=== PATIENT | female | born 1950 | race Caucasian/White ===

== ENCOUNTER → 2019-03-22 | Outpatient (CLI) | payer OTHER, MEDICARE ==
[~2019-03-22] MED LIST: ATORVASTATIN CA40 MG PO; NORVASC10 MG PO; PREDNISONE 5 MG5 M1 PO; TOPROL XL50 MG
== END ==
LOC: RAD 15:03
DX: M20.5X2 Other deformities of toe(s) (acquired), left foot (principal); M19.072 Primary osteoarthritis, left ankle and foot

== ENCOUNTER → 2019-03-28 | Outpatient (CLI) | payer OTHER, MEDICARE | LOC: MRI 06:58 | DX: M86.8X7 Other osteomyelitis, ankle and foot (principal); M19.072 Primary osteoarthritis, left ankle and foot; M20.12 Hallux valgus (acquired), left foot ==

== ENCOUNTER 2019-03-29 10:35 | Inpatient (IN) | payer OTHER, MEDICARE ==
[~2019-03-29] VITALS: Ht 154.9 cm; Wt 57.5 kg
--- NOTE | ~2019-03-29 | O ---
[facility] [place] [address] OPERATIVE REPORT Name: LISSETTE JULIAN Barbara Room #: 208-P ADM IN M.R.#: [id number] Admission: 03/29/19 ������������������ Attend Phys: Clair Araiza Discharge: ������������������ Date of : 48 Report #: [id number] THIS REPORT FOR: //name// CC: Darwin Araiza DATE OF SERVICE: 03/30/2019 SURGEON: Tc Cornell DPM PREOPERATIVE DIAGNOSES: Osteomyelitis with ulceration to left hallux, distal phalanx. POSTOPERATIVE DIAGNOSES: Osteomyelitis with ulceration to left hallux, distal phalanx. PROCEDURE: 1. Ostectomy with bone debridement, left great toe, distal phalanx. 2. Incision and drainage, left toe. 3. Bone and soft tissue cultures, left great toe, distal phalanx. 4. Surgical pathology, bone and tissue from left great toe, distal phalanx . 5. Skin flap, left great toe with primary closure over a drain. ANESTHESIA: MAC. INJECTABLES: 20 mL of 0.5% Marcaine plain. ESTIMATED BLOOD LOSS: Minimal. HEMOSTASIS: Left ankle pneumatic tourniquet at 250 mmHg. SUTURES: 3-0 nylon. SPECIMENS: 1. Bone, distal phalanx, the left great toe. 2. Soft tissue, left dorsal hallux. CULTURES: 1. Bone, left distal hallux. 2. Soft tissue, left distal hallux. COMPLICATIONS: None. DESCRIPTION OF PROCEDURE: The patient was brought to the OR and placed on the table supine with induction of MAC anesthesia. A well-padded left ankle pneumatic tourniquet was placed. A local anesthetic block was given. The [address] [address] OPERATIVE REPORT Name: LISSETTE JULIAN Barbara Room #: 208-P [facility] IN .R.#: [id number] Admission: 03/29/19 ������������������ Attend Phys: Clair Araiza Discharge: ������������������ Date of : 49 Report #: [id number] was exsanguinated and it was prepped and draped and exsanguinated with inflation of the tourniquet. A #15 blade was used to create 2 semielliptical converging incisions around the ulcerative lesion to the dorsal aspect of left hallux IP joint. The lesion was removed and the incision was then extended distally in a serpentine fashion to the distal medial aspect of the hallux. There was some residual toenail from the proximal nail plate that I removed with a mosquito hemostat from full thickness dissection down to the bone, and the medial and lateral skin flaps were mobilized and retracted. There was soft tissue necrosis to the dorsal aspect of the hallux IPJ surrounding the extensor hallucis longus tendon. A printing sales representative sample of tissue was sent for aerobic and anaerobic soft tissue cultures and the underlying infected tendinous tissue was sent for surgical pathology. The base of the distal phalangeal bone appeared soft and discolored and a portion of that was debrided with a rongeur and thoroughly curettaged. The bone was sent for culture and pathology. As I extended the dissection distally, there was a large cavitation within the central aspect of the distal phalanx consistent with the bone sequestrum. The bone was soft and slightly brownish, consistent with osteomyelitis. There is also a splintered bone fragment at the medial aspect of the sequestrum. I thoroughly debrided and curettaged the sequestrum of all soft and necrotic bone. I sent a portion of the bone for second bone pathology exam. After a thorough bone curettage of all areas and soft tissue debridement, the wound was flushed with sterile saline and dried. Electrocautery was utilized for intraoperative hemostasis. The skin flaps were closed with 3-0 nylon in simple interrupted fashion. The tourniquet was deflated with normal vascular return. Sterile compressive bandage with 0.25 inch Nu-Knit gauze was placed in the wound, exiting through the incision to act as a drain. There was no open wound left after closure. Sterile compressive bandage with Xeroform, 4 x 4s and Kerlix, and Coban were applied. The patient left the OR with no complications noted. ��������������������������������������������� ���������������������������������������� By: ��������������������������������������������� 1307 [id number] Tc Cornell DPM /kelsey
--- NOTE | ~2019-03-29 | HC ---
[facility] [place] [address] CONSULTATION Name: JULIANLISSETTE Barbara Room #: 208-P [facility] IN M.R.#: [id number] Admission: 03/29/19 ������������������ Attend Phys: Clair Araiza Discharge: ������������������ Date of : 48 Report #: [id number] THIS REPORT FOR: //name// CC: Darwin Araiza DATE OF SERVICE: 03/29/2019 ADMISSION DIAGNOSIS: Wound of right hallux with chronic infection. HISTORY OF PRESENT ILLNESS: A 68-year-old female admitted for a painful swollen left great toe. She has had a wound roughly 3 months ago. She had an infected left great toenail which was partially removed without resolution of the infection. She subsequently had the remaining toenail removed and she was placed on oral antibiotics with some improvement. She had a small wound to the dorsal aspect of the left hallux over the last 3 months with significant pain. She has been on multiple oral antibiotics with minimal improvement. Her past medical history is significant for rheumatoid arthritis, hypertension, HLD. She denies fever, chills, nausea or malaise. Her vital signs are stable, and she has been afebrile. Arterial Doppler ultrasound shows multiphasic velocities to both legs, she may have a mild stenosis in the left distal SFA. Foot x-rays show osteolysis of the distal medial aspect of the left hallux, distal phalanx. MRI shows increased signal to the same region with T2 hyperintense signal consistent with acute osteomyelitis. No septic arthritis was visualized to the hallux interphalangeal joint. No signs of abscess and cyst to the soft tissue. She is on parenteral vancomycin with good tolerance. LABORATORY DATA: WBC 6.7, RBC 5.03, hemoglobin 16.1, hematocrit 46.3, platelets 113. BUN 29, creatinine 1.1, glucose 84. PHYSICAL EXAMINATION: There is a small ulceration on the dorsal aspect of the left hallux overlying the interphalangeal joint roughly 2 mm diameter. No expressible drainage or purulence. Localized inflammation to the area consistent with mild cellulitis. There is no underlying fluctuance or crepitation with joint range of motion or palpation. The left hallux nail bed is dry and clean, with intact skin and no lesions or inflammation. The nail unit has previously been removed with no signs of residual or recurrent nail. She has dystrophic toenails bilaterally, palpable dorsalis pedis and posterior tibial pulses bilaterally. No pallor, cyanosis or signs of acute vascular embarrassment. +2 nonpitting edema to both lower legs. She has intact epicritic sensation to both plantar feet. Negative Homans' or Purcell sign to either extremity. No popliteal adenopathy, no calf pain. IMPRESSION: Chronic ulceration to left dorsal hallux overlying the interphalangeal joint, possible osteomyelitis of the distal medial phalanx. [address] [address] CONSULTATION Name: LISSETTE JULIAN Barbara Room #: 208-P ADM IN M.R.#: [id number] Admission: 03/29/19 ������������������ Attend Phys: Clair Araiza Discharge: ������������������ Date of : 49 Report #: [id number] PLAN: Based on the chronicity of the ulcer and concerning radiographic findings, I recommend incision and drainage of the dorsal hallux wound with debridement of the distal phalangeal tuft with bone and soft tissue cultures and bone pathology. It is likely we order resuture of the surgical incision over a drain. I discussed the proposed procedure in detail with the patient, and she is agreeable. I do not recommend hallux amputation based on the clinical and radiographic findings at this point. We will keep her n.p.o. past midnight. ��������������������������������������������� ���������������������������������������� By: ��������������������������������������������� 1719 09 Tc Cornell DPM /kelsey
--- NOTE | ~2019-03-29 | HC ---
[facility] [place] [address] CONSULTATION Name: LISSETTE JULIAN Barbara Room #: 208-P ADM IN M.R.#: [id number] Admission: 03/29/19 ������������������ Attend Phys: Clair Araiza Discharge: ������������������ Date of : 49 Report #: [id number] THIS REPORT FOR: //name// CC: Darwin Araiza DATE OF SERVICE: 04/01/2019 CHIEF COMPLAINT: Postoperative day #2 for incision and drainage with bone debridement of left hallux for osteomyelitis. SUBJECTIVE: She is on parenteral antibiotics with good tolerance. Surgical bone and tissue cultures are pending, as well as surgical pathology. She relates moderate throbbing pain, well controlled with hydrocodone. Her appetite has somewhat decreased, denies constitutional symptoms. She has been ambulating on the foot to use the restroom. No new labs for review. PHYSICAL EXAMINATION: The incision is well approximated with no pallor, cyanosis or signs of acute vascular embarrassment. Nu Gauze drain is intact with some sanguinous drainage on the bandage, immediate digital capillary refill, low grade inflammation to the hallux with no fluctuance, crepitation or expressible drainage from the incision. IMPRESSION: Status post bone debridement, left hallux. PLAN: The Nu Gauze drain was pulled and the surgical incision cleansed with saline and gauze, redressed with Xeroform, 4 x 4, and Samir gauze. The patient may ambulate in a surgical shoe, weightbearing as tolerated. I will follow up with her this upcoming at our [facility]. Home health for dressing changes 2 times a week. ��������������������������������������������� ���������������������������������������� By: ��������������������������������������������� 1131 1504 Tc Cornell DPM /nt
--- NOTE | 2019-03-29 11:48 | NUR ---
DIRECT ADMIT TO UNIT FROM MD'S OFFICE. ORIENTED TO UNIT. DR. TOVAR PAGED FOR ADMIT ORDERS.
[2019-03-29 13:03] LABS: HEMATOCRIT 46.3 % (37.0-47.0); HEMOGLOBIN 16.1 gm/dL (12.0-15.0); MCHC 34.8 g/dL (28.0-37.0); MCV 92.1 fL (80.0-100.0); RBC 5.03 mil/uL (4.20-5.00); RDW 13.7 % (10.5-14.5); WBC 6.7 thou/uL (4.0-11.0)
[2019-03-29 13:21] LABS: ALBUMIN 3.9 g/dL (3.4-5.0); CALCIUM 9.6 mg/dL (8.5-10.1); CREATININE 1.1 mg/dL (0.6-1.0); TOTAL BILIRUBIN 0.9 mg/dL (<0.1-1.0); TOTAL PROTEIN 6.9 g/dL (6.4-8.2)
[2019-03-29 13:22] LABS: CHOLESTEROL 130 mg/dL (<200); HDL CHOLESTEROL 50 mg/dL (>40); LDL CHOLESTEROL 51 mg/dL (<100); TC:HDL 2.6 Ratio (Not establshd); TRIGLYCERIDE 149 mg/dL (<150); VLDL 30 mg/dL (<40)
[2019-03-29 13:23] LABS: POTASSIUM 2.7 mmol/L (3.5-5.1)
[2019-03-29 14:52] LABS: URIC ACID* 6.2 mg/dL (2.6-7.2)
--- NOTE | 2019-03-29 15:07 | NUR ---
K+ 2.7. MOMO SEVERINO, HERE. ORDERS RECEIVED. K+ REPLACEMENT AND VANCOMYCIN STARTED. WILL CONTINUE TO MONITOR.
[2019-03-29 19:38] VITALS: BP 151/67
--- NOTE | 2019-03-30 02:28 | NUR ---
ASSESSMENTS CHARTED. PATIENT UP AT JULY IN ROOM DURING SHIFT. HAS BEEN NPO SINCE MIDNIGHT FOR PROCEDURE IN MORNING. LEFT FOOT 1ST DIGIT IS SWOLLEN, DOCTOR TO PERFORM I & D AND GET SPECIMEN SAMPLE. PATIENTS POTASSIUM WAS CRITICALLY LOW DURING DAY PRIOR TO THIS SHIFT. 3 DOSES OF POTASSIUM WERE GIVEN DURING THE DAY. MORNING LAB TO CHECK CURRENT LEVEL. DENIES PAIN. PATIENT STEADY ON HER FEET AND NOT CURRENTLY ON PAIN MEDS.
[2019-03-30 04:59] LABS: ABSOLUTE NEUTROPHILS 2.5 thou/uL (1.4-8.2); BASOPHILS 1.1 % (0.0-2.0); EOSINOPHILS 5.7 % (0.0-3.0); HEMATOCRIT 42.1 % (37.0-47.0); HEMOGLOBIN 14.6 gm/dL (12.0-15.0); LYMPHOCYTES 38.5 % (24.0-44.0); MCHC 34.7 g/dL (28.0-37.0); MCV 92.4 fL (80.0-100.0); MONOCYTES 9.1 % (1.0-8.0); PLATELET COUNT 100 thou/uL (150-400); POLYS 45.6 % (36.0-66.0); RBC 4.56 mil/uL (4.20-5.00); RDW 13.8 % (10.5-14.5); WBC 5.4 thou/uL (4.0-11.0)
[2019-03-30 05:08] LABS: CALCIUM 8.8 mg/dL (8.5-10.1); CREATININE 0.8 mg/dL (0.6-1.0); MAGNESIUM 1.9 mg/dL (1.8-2.4)
[2019-03-30 05:18] LABS: POTASSIUM 4.3 mmol/L (3.5-5.1)
[2019-03-30 05:29] VITALS: BP 141/54
[2019-03-30 06:06] LABS: GLYCOHEMOGLOBIN (HGB A1C) 5.5 % (4.8-5.6)
[2019-03-30 07:39] VITALS: BP 134/61
[2019-03-30 11:12] VITALS: BP 154/56
--- NOTE | 2019-03-30 11:59 | NUR ---
Nutrition: Pt seen per nutrition screening for osteomyelitis of L toe (distal 1st phalanx per notes). Has been NPO since 0000 for procedure today. I&D planned w/ tissue sample. On heart healthy diet yesterday, but no meal intakes recorded. Visited w/ pt at bedside. She voices no appetite/nutrition concerns. RD shared importance of good nutrition and provided protein education. Pt likes a variety of protein - both meat, dairy, and plant sources. Understands goal of 1-2 sources q meal and understands she can make menu changes as needed to help promote proper nutrition. K+ critically low 03/29, received 3 bags to help replace, now 4.3 (WNL) before procedure. Pt remains low nutrition risk d/t adequate po CONTACT CLERK and great understanding of nutrient needs.
--- NOTE | 2019-03-30 15:24 | HC ---
[facility] [place] [address] CONSULTATION Name: JULIANLISSETTE Barbara Room #: 208-P [facility] IN M.R.#: [id number] Admission: 03/29/19 ������������������ Attend Phys: Clair Araiza Discharge: ������������������ Date of : 49 Report #: [id number] THIS REPORT FOR: //name// CC: Darwin Araiza DATE OF SERVICE: 03/29/2019 INFECTIOUS DISEASE CONSULTATION REASON FOR CONSULTATION: I was asked to evaluate concerning left great toe osteomyelitis. HISTORY OF PRESENT ILLNESS: The patient is a 68-year-old with history of hypertension; rheumatoid arthritis, on low dose prednisone several months ago; had ingrown nail to her left first toe. She had surgical intervention about 2 months ago. Subsequently, had persistent swelling, drainage, and pain. Placed on oral antibiotic therapy over the last 6 weeks. Still has significant amount of pain. X-ray showed some loss of the distal tuft. This was confirmed by MRI scan. Therefore, she was hospitalized for further treatment. The patient also smokes cigarettes. 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 Denies any fever, chills, or sweats. No cough or sputum production. No nausea, vomiting, or diarrhea. No chest pain or palpitations. She does have one functioning kidney. REVIEW OF SYSTEMS: A 10-point was otherwise negative. PAST MEDICAL HISTORY: Hypertension, rheumatoid arthritis, hyperlipidemia, one functional kidney, hysterectomy, bladder sling surgery, and cataract surgery. FAMILY HISTORY: Noncontributory. SOCIAL HISTORY: She is a smoker of cigarettes, minimal alcohol intake. ALLERGIES: LISINOPRIL. MEDICATIONS: As noted on her MAR, which were reviewed. PHYSICAL EXAMINATION: VITAL SIGNS: Afebrile and hemodynamically stable. GENERAL: Alert and cooperative. SKIN: Without rash or decubitus. No palpable adenopathy. HEENT: Eyes, without scleral icterus. Mouth without mucositis. NECK: Supple. [facility] [address] [place] [address] CONSULTATION Name: LISSETTE JULIAN Barbara Room #: 208-P [facility] IN ..#: [id number] Admission: 03/29/19 ������������������ Attend Phys: Clair Hicks Jose G Discharge: ������������������ Date of : 49 Report #: [id number] LUNGS: Clear. HEART: Regular, without murmur. ABDOMEN: Soft and nontender with no hepatosplenomegaly or mass. GENITAL: Not performed. RECTAL: Not performed. EXTREMITIES: Unremarkable other than her left great toe, nail was absent. She had significant amount of tenderness to the distal aspect of her distal phalanx. No tenderness along the DIP joint. A 1+ swelling and mild erythema. Sensation was intact. Pulses in the foot were normal. Pulses in the popliteal 2+ and 2+ in the left femoral. NEUROLOGIC: Mental status was normal with cranial nerves intact. Strength in upper and lower extremities is normal. Sensation was intact. Mood normal. LABORATORY STUDIES: Reviewed. MRI scan reviewed. IMPRESSION: 1. Left great toe distal phalanx osteomyelitis in the setting of mild immunosuppression due to rheumatoid arthritis. She has failed outpatient oral antibiotic therapy. 2. Rheumatoid arthritis, on low dose steroids. 3. Functional solitary kidney. 4. Thrombocytopenia. 5. Likely component of peripheral vascular disease although pulses were reasonable. RECOMMENDATION: 1. We will hold IV antibiotic therapy today, anticipating surgical intervention tomorrow. Obtain cultures of the bone. We will then restart antibiotics empirically. Duration of antibiotics will depend upon the level of amputation. 2. Follow creatinine closely. 3. Decreased immunosuppression as much as possible as infection is treated. ��������������������������������������������� <ELECTRONICALLY SIGNED> ���������������������������������������� By: Tc Clark MD ��������������������������������������������� 03/30/19 1524 2044 [id number] Tc Clark MD /nt
--- NOTE | 2019-03-30 15:31 | NUR ---
Chart reviewed and case discussed with the care team. Pt is a&ox4 and indep prior to admission. She had surgical debridement of her toe today and is on iv atb for osteo dx. Dc planning needs are uncertain at this time. Should the pt need home iv atb at dc will check insurance benefits with [employer]. The pt may be a good candidate for outpt infusion as well. Wound care and ID are involved. Will check benefits and dc recommendations.
--- NOTE | 2019-03-30 16:39 | NUR ---
FAXED REFERRAL TO [facility] SPOKE WITH HELGA IN INTAKE AND SHE WILL CHECK BENEFITS FOR VANCO 750MG IVPB Q12H. FAXED REFERRAL TO [facility] SPOKE WITH MICHAEL INTAKE AND HE RECEIVED AND WILL CHECK BENEFITS,. DCP TO FOLLOW.
--- NOTE | 2019-03-30 18:18 | NUR ---
VASCULAR ACCESS CONSULTED FOR PICC LINE. PIV STARTED IN RADHA PER IV TEAM LAST NIGHT WITH LONG 22, EXCELLENY BLOOD RETURN, PT'S LABS,MEDS,HX,ORDER AND CONSENT VERIFIED. DISCUSSED BENEFITS AND RISK OF OVER THE WIRE INSERTION OF PICC, VERBALIZED UNDERSTANDING. RADHA BRACHIAL WIDELY PATENT WITH USG. #4FR SL POWER PICC TRIMMED TO 43CM INSERTED PER POLICY TO 2CM EXTERNAL. STAT CXR OBTAINED.
--- NOTE | 2019-03-30 19:05 | NUR ---
CXR SHOWED LOOP IN LINE SO, PICC POWER FLUSHED,REPOSITIONED ANOTHER CXR ORDERED FOR CONFIRMATION.
--- NOTE | 2019-03-30 19:09 | NUR ---
ASSESSMENT CHARTED, VSS, ALERT AND ORIENTED X4, I&D PERFORMED ON R GREAT TOE, DRESSING ON R FOOT IS CDI, CONSENT FOR 4 PICC OBTAINED, WILL CONTINUE TO MONITOR
[2019-03-30 19:55] VITALS: BP 108/54
--- NOTE | 2019-03-30 20:30 | NUR ---
CXR CONFIRMS SVC, PT HAS BRISK BR AND FLUSH SO PICC RELEASED PER PROTOCOL TO SHILPI CANELA.
--- NOTE | 2019-03-31 01:51 | NUR ---
ASSESSMENTS CHARTED. PATIENT RESTING IN BED POST DEBRIDEMENT OF LEFT GREAT TOE. PICC LINE WAS PLACED TODAY COILED BUT TIP IS CORRECTLY PLACED. VERIFIED WITH XRAY, RELEASED FOR USE. ANTIBIOTIC TREATMENT GIVEN. PLAN OF CARE IS FOR PATIENT TO RETURN HOME ON IV ANTIBIOTIC TREATMENT. C/O PAIN IN LEFT TOE, DOSED CHARTED. PATIENT STEADY ON HER FEET. UP INDEPENDENTLY.
[2019-03-31 04:32] VITALS: BP 114/50
[2019-03-31 07:59] VITALS: BP 109/59
--- NOTE | 2019-03-31 15:00 | NUR ---
ALERT AND ORIENTED AND VITALS STABLE. MEDICATED FOR PAIN WITH PRN MEDS. UP AD JULY TO THE BATHROOM AND AROUND THE ROOM AND HAS STEADY GAIT. TOLERATING DIET W/O NAUSEA. VOIDING IN THE TOILET W/O DIFFICULTY. DRESSING ON LEFT GREAT TOE/FOOT INTACT. WILL CONTINUE TO MONITOR AND MEDICATE FOR PAIN NEEDED.
[2019-03-31 19:58] VITALS: BP 105/50
[2019-04-01 05:04] VITALS: BP 122/54
--- NOTE | 2019-04-01 05:12 | NUR ---
ASSESSMENTS CHARTED. PATIENT UP AT JULY IN ROOM. ONE COMPLAINT OF PAIN. DOSED CHARTED. ADDITIONAL ORDER RECEIVED FOR WIDER RANGE OF PAIN. PLAN OF CARE IS TO GO HOME ON ANTIBIOTIC TREATMENT. WAITING FOR REQUIREMENT DOSES AND WEIGHT BEARING STATUS FOR GOING HOME.
[2019-04-01 08:30] VITALS: BP 138/60
[2019-04-01 11:08] VITALS: BP 109/47
[2019-04-01 20:53] VITALS: BP 124/48
[2019-04-02 04:38] VITALS: BP 130/54
--- NOTE | 2019-04-02 06:22 | NUR ---
A/O X 4.UP INDEPENDENTLY TO THE BATHROOM.VOIDS.LEFT GREAT TOE DRESSING CLEAN,DRY AND INTACT.PAIN WELL CONTROLLED. IS WITH THE PATIENT.DENIES ANY NEEDS AT THIS TIME.WILL MONITOR AND CONTINUE POC.
[2019-04-02 07:25] VITALS: BP 126/55
--- NOTE | 2019-04-02 08:26 | HC ---
[facility] [place] [address] CONSULTATION Name: LISSETTE JULIAN Barbara Room #: 208-P [facility] IN M.R.#: [id number] Admission: 03/29/19 ������������������ Attend Phys: Clair Araiza Discharge: ������������������ Date of : 49 Report #: [id number] THIS REPORT FOR: //name// CC: Darwin Araiza DATE OF SERVICE: 03/29/2019 CHIEF COMPLAINT: Osteomyelitis of the right great toe. HISTORY OF PRESENT ILLNESS: This is a 68-year-old female patient with a history of hypertension and rheumatoid arthritis, who has had ongoing ulceration of her right great toe and is failing outpatient therapy. She has had the ulceration for the last 3 months. She has had her toenail removed without improvement. She has had an MRI and x-ray that demonstrates probable osteomyelitis of the distal tuft of the right great toe. She has some complaint of pain in this area. PAST MEDICAL HISTORY: Positive for hypertension, hyperlipidemia and rheumatoid arthritis. She denies any history of diabetes. She is noted to have one functioning kidney. She has had previous hysterectomy. MEDICATIONS: Include metoprolol, Norvasc, Lipitor, prednisone. SOCIAL HISTORY: Positive for smoking cigarettes, half pack per day for 40 years. No alcohol use. FAMILY HISTORY: Noncontributory. REVIEW OF SYSTEMS: CONSTITUTIONAL: The patient denies fever, chills or weight loss. NEUROLOGICAL: The patient denies focal weakness, numbness, tingling. EYES: The patient denies visual changes, redness, or drainage. ENT: The patient denies earache, nasal drainage, sore throat. CARDIOVASCULAR: The patient denies chest pain, palpitations or diaphoresis. PULMONARY: The patient denies cough or shortness of breath. GASTROINTESTINAL: The patient denies nausea, vomiting, diarrhea or abdominal pain. ORTHOPEDIC: The patient notes ulceration, drainage, redness and swelling to the right great toe. Other systems in a 14-point review of systems are negative. PHYSICAL EXAMINATION: VITAL SIGNS: At this time include temperature of 99.6, pulse 76, respiratory rate 20, blood pressure 151/67. GENERAL: This is a well-developed, well-nourished female patient who appears to [facility] [address] [place] [address] CONSULTATION Name: LISSETTE JULIAN Room #: 208-P [facility] IN .R.#: [id number] Admission: 03/29/19 ������������������ Attend Phys: Clair Araiza Discharge: ������������������ Date of : 48 Report #: [id number] be in no apparent distress. HEENT: Head normocephalic. Nose and throat clear. NECK: Supple. LUNGS: Clear. HEART: Regular rate and rhythm. ABDOMEN: Bowel sounds present. EXTREMITIES: Examination of the lower extremities demonstrate easily palpable distal pulses. She has ulceration and some redness and swelling to the right great toe. A small ulceration on the dorsal aspect of the toe is noted as well. LABORATORY STUDIES: Include white blood cell count 6.7 with hemoglobin of 16.1, hematocrit 46.3, platelet count 113,000. Sed rate is 0. Rheumatoid factor is 240.3. CLINICAL IMPRESSION: 1. Ulceration, right great toe. 2. Osteomyelitis, distal phalanx of great toe. 3. Immunosuppression for rheumatoid arthritis. 4. Hypertension. RECOMMENDATIONS: At this point in time, the patient will be started on antibiotics per Infectious Disease. We will recommend continuation of current medications. Otherwise, we will consult Podiatry; likely she would benefit from amputation of the distal phalanx of the great toe in order to effect a cure. The patient is agreeable with current plan of care. I do appreciate being asked to see her in consultation. ��������������������������������������������� <ELECTRONICALLY SIGNED> ���������������������������������������� By: Marvel Kearns MD ��������������������������������������������� 04/02/19 0826 1043 [id number] Marvel Kearns MD /nt
--- NOTE | 2019-04-02 09:37 | NUR ---
ASSESSMENT CHARTED, VSS, ALERT AND ORIENTED X 4, MEDICATIONS ADMINISTERED, NO NEEDS VOICED, WILL CONTINUE TO MONITOR
--- NOTE | 2019-04-02 14:33 | NUR ---
SPOKE WITH PATIENT REGARDING OUT OF POCKET COST FOR OUTPATIEN INFUSION. PATIENTS OUTPATIENT COST IS $182 SP WITH COST OF DRUG AND DAILY SUPPLY COST. PATIENT PREFERS OUTPATIENT INFUSION. SHE PREFERS OUTPATIENT INFUSION HERE AT [facility]. SP WITH FRANSICO IN OUTPATIENT INFUSION TO ALERT OF POSSIBLE DC.
--- NOTE | 2019-04-02 15:43 | NUR ---
WOUND CARE FOLLOW UP; ROUNDING WITH DR NAGEL AND KATRIN [employer]INE PLANT OPERATOR. THE RIGHT TOE WOUND IS STABLE AT THIS TIME, NO S/S OF INFECTION. RECOMMENDATIONS; CONTINUE CURRENT TREATMENT. DISCUSSED WITH STAFF
[2019-04-02 16:24] VITALS: BP 126/55
[2019-04-02] MEDS ORDERED: HYDROCODON-ACE1 EAC7 PO (16:44)
[2019-04-02] MEDS ORDERED: ROCEPHIN 11 GM/1001 IV (16:44)
--- NOTE | 2019-04-02 17:03 | NUR ---
spoke with Dr Amber crane ak home with outpatient infusion. orders in chart. Notified Susy in outpatient infusion clinic who requests 1pm apt in am. Sp with patient who is in agreement with plan.
[2019-04-02 17:14] VITALS: BP 126/55
[2019-04-02 17:24] VITALS: BP 126/55
--- NOTE | 2019-04-02 17:50 | NUR ---
PATIENT DISCHARGED TO HOME WITH ORDERS FOR OUTPATIENT IV THERAPY, PRESCRIPTIONS AND DISCHARGE INSTRUCTIONS GIVEN, STATED UNDERSTANDING. PATIENT TAKEN OUT IN WHEELCHAIR.
[2019-04-03] MEDS ORDERED: ACTEMRA80 MG/4 ML IV (13:31)
--- NOTE | 2019-04-04 12:06 | PATH ---
[facility] [place] [address] PATHOLOGY RPT PROCEDURE Name: LISSETTE JULIAN Barbara Room #: 208-P DIS IN M.R.#: [id number] ������������������ Admission: 03/29/19 ������������������ Date of : 48 Discharge: 04/02/19 Report #: [id number] Path Case #: [id number] L[facility] Accession Number: [id number] . 01 Material submitted: . PART A: toe - LEFT GREAT TOE-SOFT TISSUE. Modifiers: left, great PART B: toe - LEFT GREAT TOE-BONE #1. Modifiers: left, great, 1 PART C: toe - LEFT GREAT TOE-BONE #2. Modifiers: left, great, 2 . 01 Clinical history: . Left great toe. . 02 Diagnosis: A. Left great toe soft tissue, debridement: - Marked acute inflammation along with fibrinoid degeneration, consistent with debridement tissue. . B. Left great toe bone #1, debridement: - Fragment of bone with acute and chronic osteomyelitis, compatible with debridement tissue. . C. Left great toe bone #2, debridement: - Fragment of bone with acute and chronic osteomyelitis, compatible with debridement tissue. - Additional fragment of bone showing regenerative changes. (IUV:maliha; 04/02/2019) MBR/04/03/2019 . 02 Electronically signed: . Lara Yates MD, Pathologist NPI- [id number] . 01 Gross description: . A. Received in formalin labeled "Lissette Julian, left great toe soft tissue" is a fragment of nunn-yellow soft tissue measuring 1.3 x 0.9 x 0.3 cm. The specimen is trisected and submitted in cassette A1. . B. Received in formalin labeled "Lissette Julian, left great toe bone #1" are two fragments of nunn-white irregular bone measuring 1.3 x 0.4 x 0.3 cm in aggregate. The specimen is submitted entirely in cassette B1 following decalcification. . C. Received in formalin labeled "Lissette Julian, left great toe bone #2" are two fragments of nunn-white bone measuring in aggregate 1.0 x 0.6 x 0.2 cm. The specimen is submitted entirely in cassette C1 following decalcification. ([facility]; 04/01/2019) [facility]/[address] [address] PATHOLOGY RPT PROCEDURE Name: LISSETTE JULIAN Barbara Room #: 208-P DIS IN M.R.#: [id number] ������������������ Admission: 03/29/19 ������������������ Date of : 48 Discharge: 04/02/19 Report #: [id number] Path Case #: [id number] . 02 Pathologist provided ICD-10: M86.172, M86.672 . 02 CPT . 328315, 356760, 058784, 665369, 155566 Specimen Comment: A courtesy copy of this report has been sent to Specimen Comment: [phone], , . Specimen Comment: Report sent to ,DR TOVAR / DR RAMIREZ Specimen Comment: A duplicate report has been generated due to demographic updates. Performed at: [address], [place] [id number] MD German Boo MD Phone: [phone] Performed at: [address] [id number] MD Lara Yates MD Phone: [phone]
== END 2019-04-02 17:49 | disposition home or self-care (01) | DRG 515 ==
LOC: 2N 10:35 → ENTRNSPT 04-02 17:33 → 2N 04-02 17:49
PROVIDERS: Nurse Practitioner; ADMIT Hospitalist
PROC: 02HV33Z Insertion of Infusion Device into Superior Vena Cava, Percutaneous Approach (ICD-10-PCS; principal; 2019-03-30)
PROC: 0QBR0ZZ Excision of Left Toe Phalanx, Open Approach (ICD-10-PCS; principal; 2019-03-30)
DX: M86.8X7 Other osteomyelitis, ankle and foot (principal); N17.0 Acute kidney failure with tubular necrosis; M06.9 Rheumatoid arthritis, unspecified; E78.5 Hyperlipidemia, unspecified; F17.210 Nicotine dependence, cigarettes, uncomplicated; D69.6 Thrombocytopenia, unspecified; L97.519 Non-pressure chronic ulcer of other part of right foot with unspecified severity; L97.529 Non-pressure chronic ulcer of other part of left foot with unspecified severity; I12.9 Hypertensive chronic kidney disease with stage 1 through stage 4 chronic kidney disease, or unspecified chronic kidney disease; N18.9 Chronic kidney disease, unspecified; I70.209 Unspecified atherosclerosis of native arteries of extremities, unspecified extremity; E87.6 Hypokalemia; Z88.8 Allergy status to other drugs, medicaments and biological substances; Z90.710 Acquired absence of both cervix and uterus; Z98.49 Cataract extraction status, unspecified eye; Z79.899 Other long term (current) drug therapy; Z71.6 Tobacco abuse counseling
CPT/HCPCS: 10797; 27000; 50010; 50101; 50386; 56527; 57091; 62110; 62900; 70005

== ENCOUNTER → 2019-04-03 | Outpatient (CLI) | payer OTHER, MEDICARE ==
[~2019-04-03] MED LIST changes: +ACTEMRA80 MG/4 ML IV; +HYDROCODON-ACE1 EAC7 PO; +ROCEPHIN 11 GM/1001 IV
--- NOTE | 2019-04-03 13:24 | NUR ---
IN FOR [facility] INFUSION FOR LEFT 1ST TOE INFECTION/NONHEALING ULCER/S/P I&D LEFT 1ST TOE. PATIENT WAS DISCHARGED FROM THE HOSPITAL YESTERDAY AND TOLERATING [facility] WELL. PICC TO RADHA INTACT/DRESSING INTACT. SMALL AMOUNT OF BRUISING NOTED. RECEIVED GOOD BLOOD RETURN AND FLUSHED EASILY. TOLERATED INFUSION WITHOUT INCIDENT. DRESSING TO LEFT FOOT C/D/I. DISCUSSED SIDE EFFECTS OF MEDICATION. ENCOURAGED PATIENT TO TAKE A PROBIOTIC TO HELP PREVENT C-DIFF. DENIED DIARRHEA, PAIN, FEVER/CHILLS, NAUSEA/VOMITING. DISCUSSED PLAN OF CARE. PATIENT STATED UNDERSTANDING. DISMISSED IN GOOD CONDITION.
== END ==
LOC: OPONC 06:20
DX: S91.102A Unspecified open wound of left great toe without damage to nail, initial encounter (principal); M86.8X7 Other osteomyelitis, ankle and foot; I10 Essential (primary) hypertension; E78.5 Hyperlipidemia, unspecified; M19.90 Unspecified osteoarthritis, unspecified site; F17.210 Nicotine dependence, cigarettes, uncomplicated; X58.XXXA Exposure to other specified factors, initial encounter; Y93.89 Activity, other specified; Y92.89 Other specified places as the place of occurrence of the external cause
CPT/HCPCS: 95000

== ENCOUNTER → 2019-04-04 | Outpatient (CLI) | payer OTHER, MEDICARE ==
[~2019-04-04] MED LIST changes: +NEURONTIN 300300 M1 PO
[2019-04-04 11:07] VITALS: BP 126/57
--- NOTE | 2019-04-04 11:30 | NUR ---
IN FOR CEFTRIAXONE INFUSION FOR LEFT 1ST TOE INFECTION. PATIENT DENIED N/V, F/C, DIARRHEA. TOLERATED INFUSION WITHOUT INCIDENT. DRESSING TO LET 1ST TOE C/D/I. DISMISSED IN GOOD CONDITION.
== END ==
LOC: OPONC 01:22
DX: M86.8X7 Other osteomyelitis, ankle and foot (principal)
CPT/HCPCS: 95000

== ENCOUNTER → 2019-04-05 | Outpatient (CLI) | payer OTHER, MEDICARE ==
[2019-04-05 08:51] VITALS: BP 94/53
--- NOTE | 2019-04-05 09:43 | NUR ---
IN FOR DAILY CEFTRIAXONE INFUSION FOR LT 1ST TOE INFECTION. STATED FEELING WELL. DENIED N/V, F/C, DIARRHEA. TOLERATED INFUSION WITHOUT INCIDENT. RECEIVED GOOD BLOOD RETURN FROM PICC LINE AND FLUSHED EASILY. PICC DRESSING CHANGED. SITE WNL. SMALL AMOUNT OF BRUISING NOTED. PATIENT VERY PLEASANT AND COOPERATIVE. TO RETURN TOMORROW FOR NEXT INFUSION. HAD A SOCK OVER TOE SO NOT SEEN. DENIED PAIN. DISMISSED IN GOOD CONDITION.
== END ==
LOC: OPONC 00:48
DX: M86.8X7 Other osteomyelitis, ankle and foot (principal)
CPT/HCPCS: 95000; 95001

== ENCOUNTER → 2019-04-06 | Outpatient (CLI) | payer OTHER, MEDICARE ==
[2019-04-06 09:59] VITALS: BP 121/57
--- NOTE | 2019-04-06 10:09 | NUR ---
IN FOR DAILY CEFTRIAXONE INFUSION FOR LT 1ST TOE OSTEOMYELITIS. DENIED PAIN, N/V, F/C, DIARRHEA. TOLERATED INFUSION WITHOUT INCIDENT. WEEKEND INSTRUCTIONS GIVEN. GOOD BLOOD RETURN FROM PICC LINE. SITE WNL. DISMISSED IN GOOD CONDITION.
== END ==
LOC: OPONC 00:18
DX: M86.8X7 Other osteomyelitis, ankle and foot (principal)
CPT/HCPCS: 95000

== ENCOUNTER → 2019-04-07 | Outpatient (CLI) | payer OTHER, MEDICARE | LOC: OPONC 06:58 | DX: M86.8X7 Other osteomyelitis, ankle and foot (principal) | CPT/HCPCS: 95000 ==

== ENCOUNTER → 2019-04-08 | Outpatient (CLI) | payer OTHER, MEDICARE | LOC: OPONC 07:00 | DX: M86.8X7 Other osteomyelitis, ankle and foot (principal) | CPT/HCPCS: 95000 ==

== ENCOUNTER → 2019-04-09 | Outpatient (CLI) | payer OTHER, MEDICARE ==
[2019-04-09 10:50] VITALS: BP 116/60
[2019-04-09 11:18] LABS: HEMATOCRIT 43.6 % (37.0-47.0); HEMOGLOBIN 15.1 gm/dL (12.0-15.0); MCH 32.2 pg (26.0-34.0); MCHC 34.6 g/dL (28.0-37.0); RBC 4.69 mil/uL (4.20-5.00); RDW 13.9 % (10.5-14.5); WBC 6.8 thou/uL (4.0-11.0)
[2019-04-09 11:32] LABS: ALBUMIN 3.8 g/dL (3.4-5.0); CALCIUM 8.9 mg/dL (8.5-10.1); CREATININE 0.9 mg/dL (0.6-1.0); POTASSIUM 3.4 mmol/L (3.5-5.1); TOTAL BILIRUBIN 0.9 mg/dL (<0.1-1.0); TOTAL PROTEIN 6.5 g/dL (6.4-8.2)
--- NOTE | 2019-04-09 12:40 | NUR ---
HERE FOR DAILY IV ROCEPHIN. STATES INFUSION OVER THE WEEKEND WENT WELL IN THE ED. PICC LINE PATENT, DRESSING INTACT, GOOD BLOOD RETURN. TOLERATED INFUSION WITHOUT INCIDENT. DENIES N/V/DIARRHEA, FEVER/CHILLS/SWEATS AT HOME. TOE LOOKS CLEAN, INCISIONS AND SUTURES INTACT. PT DOING OWN DRESSING CHANGES. HAS SOME PAIN WHICH SHE STATES IS MANAGEABLE WITH IBUPROFEN. ADDRESSED LOW POTASSIUM WITH PT AND MENTIONED FOODS HIGH IN POTASSIUM AND ENCOURAGED PT TO EAT MORE OF THESE (TOMATOES, POTATOES, BANANAS, DRK GREEN LEAFY VEGGIES). DISMISSED IN STABLE CONDITION. SCHEDULED TO RETURN AGAIN IN THE MORNING.
== END ==
LOC: OPONC 01:02
PROVIDERS: Specialist
DX: M86.8X7 Other osteomyelitis, ankle and foot (principal); I10 Essential (primary) hypertension; D69.6 Thrombocytopenia, unspecified; M06.9 Rheumatoid arthritis, unspecified
CPT/HCPCS: 95000

== ENCOUNTER → 2019-04-10 | Outpatient (CLI) | payer OTHER, MEDICARE ==
[2019-04-10 08:24] VITALS: BP 126/63
--- NOTE | 2019-04-10 12:23 | NUR ---
IN FOR DAILY CEFTRIAXONE INFUSION FOR LT 1ST TOE OSTEOMYELITIS. DENIED PAIN, N/V, FEVER/CHILLS, DIARRHEA. TOLERATED INFUSION WITHOUT INCIDENT. RECEIVED GOOD BLOOD RETURN FROM PICC LINE AND FLUSHED EASILY. SITE WNL. WILL CONTINUE DAILY INFUSIONS THROUGH NEXT TUESDAY WHEN DR. ECHEVARRIA WILL RE-EVALUATE. DISMISSED IN STABLE CONDITION.
== END ==
LOC: OPONC 01:45
DX: M86.8X7 Other osteomyelitis, ankle and foot (principal)
CPT/HCPCS: 95000

== ENCOUNTER → 2019-04-11 | Outpatient (CLI) | payer OTHER, MEDICARE ==
[~2019-04-11] MED LIST changes: -NEURONTIN 300300 M1 PO
[2019-04-11 08:55] VITALS: BP 121/70
--- NOTE | 2019-04-11 09:22 | NUR ---
HREE FOR DAILY IV ROCEPHIN. REPORTS DOING WELL, FEELING WELL. DENIES N/V/DIARRHEA, FEVER/CHILLS/SWEATS. CHANGING TOE DRESSING HERSELF DAILY. GOING TO WOUND CARE CLINIC FOR VISIT DIRECTLY FOLLOWING INFUSION TODAY. TOLERATED INFUSION WITHOUT INCIDENT. DISMISSED IN STABLE CONDITION. WILL RETURN HERE AGAIN IN THE MORNING.
== END ==
LOC: HYPER 00:37
DX: T81.89XA Other complications of procedures, not elsewhere classified, initial encounter (principal); M86.372 Chronic multifocal osteomyelitis, left ankle and foot; L03.032 Cellulitis of left toe; I10 Essential (primary) hypertension; E78.5 Hyperlipidemia, unspecified; M06.9 Rheumatoid arthritis, unspecified; F17.290 Nicotine dependence, other tobacco product, uncomplicated; Y92.89 Other specified places as the place of occurrence of the external cause; Y83.8 Other surgical procedures as the cause of abnormal reaction of the patient, or of later complication, without mention of misadventure at the time of the procedure
CPT/HCPCS: 95000

== ENCOUNTER → 2019-04-12 | Outpatient (CLI) | payer OTHER, MEDICARE ==
[~2019-04-12] MED LIST changes: +NEURONTIN 300300 M1 PO
[2019-04-12 09:12] VITALS: BP 127/64
--- NOTE | 2019-04-12 09:15 | NUR ---
IN FOR DAILY CEFTRIAXONE INFUSION FOR LT 1ST TOE OSTEOMYELITIS. STATED FEELING WELL. DENIED N/V, FEVER/CHILLS, DIARRHEA, PAIN. TOLERATED INFUSION WITHOUT INCIDENT. CHANGED PICC DRESSING. SITE WNL. RECEIVED GOOD BLOOD RETURN AND FLUSHED EASILY. TO RETURN TOMORROW FOR NEXT INFUSION. DISMISSED IN GOOD CONDITION.
== END ==
LOC: OPONC 01:54
DX: M86.8X7 Other osteomyelitis, ankle and foot (principal)
CPT/HCPCS: 95000

== ENCOUNTER → 2019-04-13 | Outpatient (CLI) | payer OTHER, MEDICARE ==
[2019-04-13 08:34] VITALS: BP 136/70
--- NOTE | 2019-04-13 08:37 | NUR ---
IN FOR DAILY CEFTRIAXONE INFUSION FOR LT 1ST TOE OSTEOMYELITIS. STATED FEELING WELL WITH NO COMPLAINTS OF N/V, FEVER/CHILLS, DIARRHEA. STATED HAS ONE SPOT ON HER TOE THAT STILL THROBS AT TIMES. DRESSING TO TOE C/D/I. TOLERATED INFUSION WITHOUT INCIDENT. SALINE LOCKED PICC LINE. DISMISSED IN GOOD CONDITION.
== END ==
LOC: OPONC 01:46
DX: M86.8X7 Other osteomyelitis, ankle and foot (principal)
CPT/HCPCS: 95000

== ENCOUNTER → 2019-04-14 | Outpatient (CLI) | payer OTHER, MEDICARE | LOC: OPONC 07:04 | DX: M86.8X7 Other osteomyelitis, ankle and foot (principal) | CPT/HCPCS: 95000 ==

== ENCOUNTER → 2019-04-16 | Outpatient (CLI) | payer OTHER, MEDICARE ==
[2019-04-16 11:30] VITALS: BP 134/62
[2019-04-16 12:08] LABS: ABSOLUTE NEUTROPHILS 3.2 thou/uL (1.4-8.2); BASOPHILS 0.8 % (0.0-2.0); EOSINOPHILS 4.7 % (0.0-3.0); HEMATOCRIT 42.6 % (37.0-47.0); HEMOGLOBIN 14.9 gm/dL (12.0-15.0); LYMPHOCYTES 25.4 % (24.0-44.0); MCHC 35.1 g/dL (28.0-37.0); MONOCYTES 8.2 % (1.0-8.0); PLATELET COUNT 106 thou/uL (150-400); POLYS 60.9 % (36.0-66.0); RBC 4.53 mil/uL (4.20-5.00); RDW 14.3 % (10.5-14.5); WBC 5.3 thou/uL (4.0-11.0)
[2019-04-16 12:25] LABS: ALBUMIN 3.8 g/dL (3.4-5.0); CALCIUM 9.2 mg/dL (8.5-10.1); CREATININE 1.1 mg/dL (0.6-1.0); POTASSIUM 3.2 mmol/L (3.5-5.1); TOTAL BILIRUBIN 0.9 mg/dL (<0.1-1.0); TOTAL PROTEIN 6.4 g/dL (6.4-8.2)
--- NOTE | 2019-04-16 12:30 | NUR ---
IN FOR DAILY IV ANTIBIOTIC. STATES WEEKEND INFUSIONS WENT WELL. REPORTS DOING WELL EXCEPT FOR PERSISTENT INTERMITTENT SHOOTING PAINS L 1ST TOE. THIS HAS NOT GOTTEN WORSE, JUST NO BETTER. PT DENIES N/V/DIARRHEA, FEVER/CHILLS/SWEATS. TOE SUTURES AND INCISIONS INTACT, JUST SLIGHT REDNESS, NO NOTED EDEMA. STATES SHE SEES THE SURGEON ON AND HOPES TO HAVE SUTURES REMOVED. SAW DR. ECHEVARRIA. SCRIPT FOR NEURONTIN GIVEN TO PT WITH INSTRUCTIONS ON HOW TO TAKE AND TO WATCH FOR POTENTIAL DROWSINESS SIDE EFFECT. LABS DRAWN, CHEMISTRIES NOT YET RESULTED. PT DISMISSED IN STABLE CONDITION. SCHEDULED TO RETURN IN THE MORNING.
--- NOTE | 2019-04-16 16:19 | NUR ---
REVIEWED LABS FROM TODAY. POTASSIUM TRENDING DOWN. FAXED LABS TO BOTH DR. ECHEVARRIA AND PT'S PCP, DR. RAMIREZ AND SPOKE WITH BOTH NURSES WELL PT TO INFORM THEM OF LOW K. TOLD PT TO EXPECT A F/U CALL TOMORROW FROM EITHER OF THEM TO ADVISE HER ON K MANAGEMENT. PT STATES SHE USED TO TAKE KLORCON BUT HAS BEEN OFF FOR A WHILE.
--- NOTE | 2019-04-23 14:04 | HC ---
[facility] [place] [address] [address] CONSULTATION Name: LISSETTE JULIAN Barbara Room #: REG [facility].#: [id number] Admission: 04/16/19 Attend Phys: Tc Clark MD Discharge: Date of : 48 Report #: [id number] THIS REPORT FOR: //name// CC: Tc Park INFECTIOUS DISEASE FOLLOWUP VISIT REASON FOR FOLLOWUP: Right first toe osteomyelitis. Postoperative day #18. Ceftriaxone. No fever, chills or sweats. Continues to have shooting pains into her left great toe. No drainage. No issues with her upper extremity PICC on the right. Afebrile and hemodynamically stable. Left first toe incision was well approximated. There was no drainage. There was minimal swelling. There was no erythema. Right upper extremity PICC site without drainage or erythema. LABORATORY STUDIES: Pending. Microbiology reports showed no growth, aerobic and anaerobic bacteria. IMPRESSION: 1. Left distal first phalanx osteomyelitis with no organisms identified. 2. Immunosuppression for rheumatoid arthritis. 3. Solitary functioning kidney. 4. Hypertension. 5. Chronic thrombocytopenia. RECOMMENDATION: We will continue ceftriaxone anticipating 4 weeks and then follow up x-ray. We will try gabapentin and see if that helps her neuropathy type of pain here. We will start at 300 mg t.i.d. FOLLOWUP: One week with laboratory studies including CBC, CMP, sedimentation rate. The patient will follow up with Dr. Cornell from Podiatry later this week. <ELECTRONICALLY SIGNED> By: Tc Clark MD 04/23/19 1404 1210 2206 Tc Clark MD /nt
== END ==
LOC: OPONC 08:48
PROVIDERS: Specialist
DX: M86.8X7 Other osteomyelitis, ankle and foot (principal); I10 Essential (primary) hypertension; M06.9 Rheumatoid arthritis, unspecified; D69.6 Thrombocytopenia, unspecified
CPT/HCPCS: 95000

== ENCOUNTER → 2019-04-17 | Outpatient (CLI) | payer OTHER, MEDICARE ==
[2019-04-17 08:57] VITALS: BP 127/73
--- NOTE | 2019-04-17 09:08 | NUR ---
IN FOR DAILY CEFTRIAXONE INFUSION FOR LT 1ST TOE OSTEOMYELITIS. STATED FEELING WELL. DRESSING TO LT 1ST TOE C/D/I. DENIED PAIN, N/V, FEVER/CHILLS, DIARRHEA. TOLERATED INFUSON WITHOUT INCIDENT. SALINE LOCKED PICC LINE. DISMISSED IN GOOD CONDITION.
== END ==
LOC: OPONC 00:17
DX: M86.8X7 Other osteomyelitis, ankle and foot (principal)
CPT/HCPCS: 95000

== ENCOUNTER → 2019-04-18 | Outpatient (CLI) | payer OTHER, MEDICARE ==
[2019-04-18 08:03] VITALS: BP 116/62
--- NOTE | 2019-04-18 08:32 | NUR ---
HERE FOR DAILY IV CEFTRIAXONE. REPORTS DOING WELL, NO CONCERNS. SEES THE SURGEON TOMORROW AND HOPES TO HAVE SUTURES REMOVED FROM TOE. SEES DR. RAMIREZ ON TUESDAY FOR GENERAL CHECK AND TO ALSO EVALUATE FOR POTASSIUM REPLACEMENT. TOLERATED INFUSION WITHOUT INCIDENT. DISMISSED IN STABLE CONDITION. WILL RETURN AGAIN TOMORROW.
== END ==
LOC: OPONC 00:39
DX: M86.8X7 Other osteomyelitis, ankle and foot (principal)
CPT/HCPCS: 95000

== ENCOUNTER → 2019-04-19 | Outpatient (CLI) | payer OTHER, MEDICARE ==
[2019-04-19 11:02] VITALS: BP 116/61
--- NOTE | 2019-04-19 11:09 | NUR ---
IN FOR DAILY CEFTRIAXONE INFUSION FOR LT 1ST TOE OSTEOMYELITIS. STATED FEELING WELL. DENIED PAIN, N/V, FEVER/CHILLS, DIARRHEA. TOLERATED INFUSION WITHOUT INCIDENT. RECEIVED GOOD BLOOD RETURN FROM PICC LINE AND FLUSHED EASILY. TO RETURN TOMORROW FOR NEXT INFUSION. DISMISSED IN GOOD CONDITION.
== END ==
LOC: OPONC 00:37
DX: M86.8X7 Other osteomyelitis, ankle and foot (principal)
CPT/HCPCS: 95000

== ENCOUNTER → 2019-04-20 | Outpatient (CLI) | payer OTHER, MEDICARE ==
[2019-04-20 08:10] VITALS: BP 131/62
--- NOTE | 2019-04-20 08:28 | NUR ---
IN FOR DAILY CEFTRIAXONE INFUSION. STATED FEELING WELL WITH NO COMPLAINTS OF N/V, FEVER/CHILLS, DIARRHEA. TOLERATED INFUSION WITHOUT INCIDENT. PATIENT STATED HER SURGEON TOOK OUT THE SUTURES IN HER TOE YESTERDAY AND SHE HAD SEVERE PAIN THROUGHOUT THE NIGHT, HOWEVER PAIN HAS SUBSIDED THIS AM. TO GO TO ED OVER THE WEEKEND FOR INFUSIONS. DISMISSED IN GOOD CONDITION.
== END ==
LOC: OPONC 08:20
DX: M86.8X7 Other osteomyelitis, ankle and foot (principal)
CPT/HCPCS: 95000

== ENCOUNTER → 2019-04-21 | Outpatient (CLI) | payer OTHER, MEDICARE | LOC: OPONC 09:14 | DX: M86.8X7 Other osteomyelitis, ankle and foot (principal) | CPT/HCPCS: 95000 ==

== ENCOUNTER → 2019-04-22 | Outpatient (CLI) | payer OTHER, MEDICARE | LOC: OPONC 14:50 | DX: M86.8X7 Other osteomyelitis, ankle and foot (principal) | CPT/HCPCS: 95000 ==

== ENCOUNTER → 2019-04-23 | Outpatient (CLI) | payer OTHER, MEDICARE ==
--- NOTE | ~2019-04-23 | HC ---
[facility] [place] [address] CONSULTATION Name: LISSETTE JULIAN Barbara Room #: REG [facility]#: [id number] Admission: 04/23/19 Attend Phys: Tc Clark MD Discharge: Date of : 48 Report #: [id number] THIS REPORT FOR: //name// CC: Tc Park DATE OF SERVICE: 04/23/2019 OUTPATIENT FOLLOWUP ID VISIT HISTORY OF PRESENT ILLNESS: The patient is postoperative day #25 following debridement, left first toe osteomyelitis. Ceftriaxone. No fever, chills or sweats. Right upper extremity PICC is functioning well. She still has occasional shooting pains into the left great toe. Sutures have been removed, except for one she states is remaining. Minimal drainage from her toe. Still has a wound over the dorsum. She tried gabapentin, with no improvement. Tylenol seems to help as much as anything. PHYSICAL EXAMINATION: Afebrile and hemodynamically stable. Left first toe incisional wound with relatively clean base. No surrounding erythema. No purulent drainage. No bone was exposed. One distal suture was remaining. Right upper extremity PICC was without erythema or drainage. LABORATORY STUDIES: CBC and chemistry unremarkable. ESR is pending. IMPRESSION: Left distal first toe phalanx osteomyelitis. Cultures were negative. Remains on immunosuppression for rheumatoid arthritis. She has a solitary functional kidney. Underlying hypertension. She has chronic thrombocytopenia. RECOMMENDATION: We will continue current antibiotic program. Reevaluate in 1 week. Remove distal suture. Continue with localized wound care. By: 1403 2329 Tc Clark MD /nt
[2019-04-23 11:19] LABS: ABSOLUTE NEUTROPHILS 5.1 thou/uL (1.4-8.2); BASOPHILS 0.6 % (0.0-2.0); EOSINOPHILS 2.8 % (0.0-3.0); HEMATOCRIT 43.4 % (37.0-47.0); HEMOGLOBIN 14.9 gm/dL (12.0-15.0); LYMPHOCYTES 13.2 % (24.0-44.0); MCH 32.2 pg (26.0-34.0); MCHC 34.4 g/dL (28.0-37.0); MCV 93.6 fL (80.0-100.0); MONOCYTES 6.7 % (1.0-8.0); PLATELET COUNT 123 thou/uL (150-400); POLYS 76.7 % (36.0-66.0); RBC 4.63 mil/uL (4.20-5.00); RDW 14.3 % (10.5-14.5); WBC 6.7 thou/uL (4.0-11.0)
[2019-04-23 11:34] LABS: ALBUMIN 3.8 g/dL (3.4-5.0); CALCIUM 9.6 mg/dL (8.5-10.1); CREATININE 0.9 mg/dL (0.6-1.0); POTASSIUM 3.6 mmol/L (3.5-5.1); TOTAL BILIRUBIN 0.7 mg/dL (<0.1-1.0); TOTAL PROTEIN 6.5 g/dL (6.4-8.2)
[2019-04-23 11:52] VITALS: BP 135/75
--- NOTE | 2019-04-23 14:17 | NUR ---
IN FOR DAILY CEFTRIAXONE INFUSION. STATED FEELING WELL WITH NO COMPLAINTS OF N/V, FEVER/CHILLS AND DIARRHEA. TOLERATED INFUSION WITHOUT INCIDENT. LABS DRAWN FROM PICC LINE WITHOUT DIFFICULTY. DR. ECHEVARRIA VISITED. TO CONTINUE THE SAME FOR ANOTHER WEEK. APPLIED AQUACEL AG TO LT 1ST TOE WOUND AND COVERED WITH BANDAID. INSTRUCTED PATIENT TO APPLY AQUACELL AG DAILY TO WOUND AND GAVE HER SOME OF THIS DRESSING. STATED UNDERSTANDING. DISMISSED IN GOOD CONDITION.
== END ==
LOC: OPONC 09:54
PROVIDERS: Specialist
DX: M86.8X7 Other osteomyelitis, ankle and foot (principal)
CPT/HCPCS: 95000

== ENCOUNTER → 2019-04-24 | Outpatient (CLI) | payer OTHER, MEDICARE ==
[2019-04-24 08:10] VITALS: BP 111/55
--- NOTE | 2019-04-24 09:51 | NUR ---
IN FOR DAILY CEFTRIAXONE INFUSION FOR LT 1ST TOE OSTEOMYELITIS. STATED FEELING WELL WITH NO COMPLAINTS. TOLERATED INFUSION WITHOUT INCIDENT. RECEIVED GOOD BLOOD RETURN FROM PICC LINE AND FLUSHED EASILY. TO RETURN TOMORROW FOR THE SAME. DISMISSED IN GOOD CONDITION.
== END ==
LOC: OPONC 00:52
DX: M86.8X7 Other osteomyelitis, ankle and foot (principal)
CPT/HCPCS: 95000

== ENCOUNTER → 2019-04-25 | Outpatient (CLI) | payer OTHER, MEDICARE ==
[2019-04-25 08:23] VITALS: BP 99/60
--- NOTE | 2019-04-25 09:00 | NUR ---
HERE FOR DAILY IV CEFTRIAXONE. REPORTS DOING WELL, FEELING WELL. DENIES N/V/DIARRHEA, FEVER/CHILLS/SWEATS. REPORTS EATING WELL. DID SEE HER PCP LAST WEEK WHO IS HELPING WATCH OVER HER POTASSIUM WHICH WAS IN NORMAL LIMITS THIS WEEK. REPORTS SOME THROBBING IN TOE BUT NOT BAD. STOPPED TAKING THE NEUROTIN STATING IT DIDN'T SEEM TO HELP AT ALL. STARTED BACK TO WORK A FEW HOURS ON THE WEEKEND WITHOUT ANY NOTED INCREASE IN DISCOMFORT IN TOE. PICC LINE DRESSING CHANGED TODAY. SITE LOOKS GOOD. TOLERATED INFUSION WITHOUT INCIDENT. DISMISSED IN STABLE CONDITION. WILL RETURN AGAIN IN THE MORNING.
== END ==
LOC: OPONC 00:33
DX: M86.8X7 Other osteomyelitis, ankle and foot (principal)
CPT/HCPCS: 95000

== ENCOUNTER → 2019-04-26 | Outpatient (CLI) | payer OTHER, MEDICARE ==
[2019-04-26 08:48] VITALS: BP 102/53
--- NOTE | 2019-04-26 08:55 | NUR ---
IN FOR DAILY CEFTRIAXONE INFUSION FOR LT 1ST TOE OSTEOMYELITIS. UNABLE TO SEE WOUND IT IS DRESSED. PATIENT DENIED PAIN, N/V, FEVER/CHILLS. TOLERATED INFUSION WITHOUT INCIDENT. DISMISSED IN GOOD CONDITION.
== END ==
LOC: OPONC 01:06
DX: M86.8X7 Other osteomyelitis, ankle and foot (principal)
CPT/HCPCS: 95000

== ENCOUNTER → 2019-04-27 | Outpatient (CLI) | payer OTHER, MEDICARE ==
[2019-04-27 08:13] VITALS: BP 137/77
--- NOTE | 2019-04-27 08:32 | NUR ---
HERE FOR DAILY IV CEFTRIAXONE. REPORTS DOING WELL, FEELING WELL, NO CONCERNS NOTED. TOLERATED INFUSION WITHOUT INCIDENT. DISMISSED IN STABLE CONDITION. WILL REPORT TO THE ED FOR HER INFUSIONS THEN RETURN HERE ON TUESDAY.
== END ==
LOC: OPONC 08:50
DX: M86.8X7 Other osteomyelitis, ankle and foot (principal)
CPT/HCPCS: 95000

== ENCOUNTER → 2019-04-28 | Outpatient (CLI) | payer OTHER, MEDICARE | LOC: OPONC 07:30 | DX: M86.8X7 Other osteomyelitis, ankle and foot (principal) | CPT/HCPCS: 95000 ==

== ENCOUNTER → 2019-04-29 | Outpatient (CLI) | payer OTHER, MEDICARE | LOC: OPONC 08:49 | DX: M86.8X7 Other osteomyelitis, ankle and foot (principal) | CPT/HCPCS: 95000 ==

== ENCOUNTER → 2019-04-30 | Outpatient (CLI) | payer OTHER, MEDICARE ==
--- NOTE | ~2019-04-30 | HC ---
[facility] [place] [address] CONSULTATION Name: LISSETTE JULIAN Barbara Room #: REG [facility].#: [id number] Admission: 04/30/19 Attend Phys: Tc Clark MD Discharge: Date of : 48 Report #: [id number] THIS REPORT FOR: //name// CC: Tc Park DATE OF SERVICE: 04/30/2019 INFECTIOUS DISEASE OUTPATIENT FOLLOWUP VISIT HISTORY OF PRESENT ILLNESS: The patient was seen in followup of her left first toe osteomyelitis. She is postoperative day #32 from surgical debridement. Remains on ceftriaxone via right upper extremity PICC. No fever, chills or sweats. Has intermittent pain in the toe controlled with Tylenol. No significant drainage from her dorsal toe incision. Overall, feels well. REVIEW OF SYSTEMS: No cardiopulmonary, GI or issues. PHYSICAL EXAMINATION: VITAL SIGNS: Afebrile and hemodynamically stable. EXTREMITIES: Left first toe incision continues to improve with no surrounding erythema or fluctuance. No bone was exposed. Right upper extremity PICC was without erythema or drainage. LABORATORY STUDIES: Pending. IMPRESSION: Left distal first toe phalanx osteomyelitis. Cultures were negative. Remains on immunosuppression for rheumatoid arthritis. Has solitary functioning kidney. Underlying hypertension. Chronic thrombocytopenia. RECOMMENDATIONS: We will finish her course of antibiotic therapy today. She will follow up with Podiatry later in the week. She will return on an as needed basis. By: 1215 01 Tc Clark MD /kelsey
[2019-04-30 12:11] LABS: ABSOLUTE NEUTROPHILS 7.1 thou/uL (1.4-8.2); BASOPHILS 0.9 % (0.0-2.0); EOSINOPHILS 0.9 % (0.0-3.0); HEMATOCRIT 43.1 % (37.0-47.0); HEMOGLOBIN 15.2 gm/dL (12.0-15.0); MCH 32.5 pg (26.0-34.0); MCHC 35.3 g/dL (28.0-37.0); MCV 92.3 fL (80.0-100.0); MONOCYTES 4.5 % (1.0-8.0); PLATELET COUNT 134 thou/uL (150-400); POLYS 81.7 % (36.0-66.0); RBC 4.67 mil/uL (4.20-5.00); RDW 14.1 % (10.5-14.5); WBC 8.6 thou/uL (4.0-11.0)
[2019-04-30 12:25] LABS: ALBUMIN 3.5 g/dL (3.4-5.0); CREATININE 0.9 mg/dL (0.6-1.0); POTASSIUM 3.4 mmol/L (3.5-5.1); TOTAL BILIRUBIN 0.7 mg/dL (<0.1-1.0)
[2019-04-30 12:47] VITALS: BP 138/68
--- NOTE | 2019-04-30 12:49 | NUR ---
IN FOR CEFTRIAXONE INFUSION FOR LT 1ST TOE OSTEOMYELITIS. DENIED PAIN, N/V, FEVER/CHILLS AND DIARRHEA. LABS DRAWN FROM PICC LINE WITHOUT DIFFICULTY. TOLERATED INFUSION WITHOUT INCIDENT. DR. ECHEVARRIA VISITED. NEW ORDER WRITTEN TO STOP IV CEFTRIAXONE AND REMOVE PICC LINE. REMOVED PICC LINE WITH TIP INTACT. APPLIED PRESSURE FOR 5 MINUTES AND COVERED WITH GAUZE AND COBAN. LT 1ST TOE WOUND HEALING. NO REDNESS OR DRAINAGE. INSTRUCTED PATIENT TO CALL IF TOE SWELLS, REDNESS, HAS ANY DRAINAGE AND OR INCREASED PAIN. PATIENT HAS PAIN AT NIGHT, EXPLAINING THAT IT FEELS LIKE A TOOTH ACHE. TOOK TYLENOL FOR THIS AND WAS ABLE TO SLEEP. PATIENT WILL SEE WOUND CARE TOMORROW AND THE SURGEON ON TUESDAY. DISMISSED IN GOOD CONDITION.
== END ==
LOC: OPONC 09:39
PROVIDERS: Specialist
DX: M86.8X7 Other osteomyelitis, ankle and foot (principal)
CPT/HCPCS: 95000

== ENCOUNTER → 2019-05-01 | Outpatient (CLI) | payer OTHER, MEDICARE | LOC: HYPER 04-25 07:21 | DX: T81.89XD Other complications of procedures, not elsewhere classified, subsequent encounter (principal); L03.032 Cellulitis of left toe; M86.372 Chronic multifocal osteomyelitis, left ankle and foot; E78.5 Hyperlipidemia, unspecified; I10 Essential (primary) hypertension; M06.9 Rheumatoid arthritis, unspecified; F17.290 Nicotine dependence, other tobacco product, uncomplicated; Y83.8 Other surgical procedures as the cause of abnormal reaction of the patient, or of later complication, without mention of misadventure at the time of the procedure ==

== ENCOUNTER 2019-05-21 06:16 | Observation (INO) | payer OTHER, MEDICARE ==
[~2019-05-21] VITALS: Ht 154.9 cm; Wt 57.6 kg
[2019-05-21] VITALS (7 sets, daily range): BP systolic 112–149; BP diastolic 48–82
--- NOTE | ~2019-05-21 | HC ---
[facility] [place] [address] CONSULTATION Name: LISSETTE JULIAN Room #: 208-P [facility]#: [id number] Admission: 05/21/19 ������������������ Attend Phys: Gilberto Oliva MD, Discharge: ������������������ Date of : 48 Report #: [id number] THIS REPORT FOR: //name// CC: Gilberto Park DATE OF SERVICE: 05/21/2019 We were asked to see the patient by Dr. Copeland. HISTORY OF PRESENT ILLNESS: The patient is a 68-year-old with coronary and peripheral arterial occlusive disease. Earlier today, the patient had carotid stent placed and had a peripheral arteriography. The patient has longstanding exertional breathlessness without orthopnea or lower extremity edema. There is no history of paroxysmal nocturnal dyspnea. Many years ago, the patient was identified as having carotid stenosis, but has had no neurologic symptoms. Over the past year, the patient has had osteomyelitis of the left great toe that has required long-term antibiotics. As mentioned today, the patient had coronary arteriography with stent placement. In addition, vascular arteriograms were taken that show a chronic right internal carotid occlusion and a shaggy origin of the left internal carotid. The vertebral arteries appear patent with good flow. 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 PAST MEDICAL HISTORY: Significant for hypertension. As mentioned, the patient has history of osteomyelitis treated recently. She also has hyperlipidemia and rheumatoid arthritis. MEDICATIONS: At home includes amlodipine, Lipitor, Lopressor, prednisone, valsartan, hydrochlorothiazide. ALLERGIES: LISINOPRIL CAUSES COUGH. FAMILY HISTORY: Mother had heart attack. Mother had stroke. Father had heart attack. Brother has had heart problems as well. SOCIAL HISTORY: The patient is a longtime smoker who quit recently. REVIEW OF SYSTEMS: GENERAL: The patient denies weight change. No fever. RESPIRATORY: Positive for shortness of breath. CARDIAC: Denies chest pain, denies palpitations. VASCULAR: Denies claudication. GASTROINTESTINAL: No nausea, vomiting, blood in stools. [facility] [address] [place] [address] CONSULTATION Name: LISSETTE JULIAN Barbara Room #: 208-P [facility]..#: [id number] Admission: 05/21/19 ������������������ Attend Phys: Gilberto Oliva MD, Discharge: ������������������ Date of : 48 Report #: [id number] GENITOURINARY: No urgency, frequency, or blood. MUSCULOSKELETAL: As mentioned osteomyelitis, left great toe. SKIN: No rash or infection. NEUROLOGIC: No motor or sensory dysfunction. PHYSICAL EXAMINATION: GENERAL: The patient is lying in bed after her angiogram. VITAL SIGNS: Blood pressure 140/70, heart rate 72. HEENT: Normocephalic. Pupils are round, equal. No icterus, no arcus. NECK: I do not hear any murmurs. No mass is palpable. CHEST: Clear to auscultation. HEART: Rhythm regular, no murmur. ABDOMEN: Soft. EXTREMITIES: No clubbing, cyanosis or edema. VASCULAR: 2+ dorsalis pedis pulses bilaterally. SKIN: No rash or infection. MUSCULOSKELETAL: No obvious bone or joint deformity. There does appear to be some deformity in the left great toe. No cellulitis of the feet or toes noted. PSYCHIATRIC: The patient is oriented and appropriate, shows insight into problem. I reviewed the findings of the arteriogram with the patient. There is a chronic right carotid occlusion and a shaggy ulceration that probably has 60% to 70% stenosis in the left internal carotid. Options and alternatives for treatment were discussed, stent placement versus open carotid work was compared and contrasted, and risks and details were reviewed. I have reviewed the case with Dr. Copeland originally and he thought the patient was a good candidate for the TCAR (transcarotid arterial revascularization) procedure and this is what we have offered the patient. Prior to the surgery, the patient will need a week of Effient, aspirin and Lipitor. We will also take the liberty of ordering a nasal swab to make sure the patient is not colonized with Staphylococcus aureus. The patient understands all of this and understands our recommendation and approach and agrees with it. Thank you for the consult ��������������������������������������������� ���������������������������������������� By: ��������������������������������������������� 1355 2333 Orville Lynch MD /nt
[~2019-05-21 06:16] MED LIST changes: -ATORVASTATIN CA40 MG PO; +LIPITOR80 MG PO
[2019-05-21] MEDS ORDERED: VALSARTAN-HCTZ1 EAC4 PO (07:23)
[2019-05-21 07:55] LABS: CALCIUM 9.6 mg/dL (8.5-10.1); CREATININE 0.9 mg/dL (0.6-1.0); POTASSIUM 3.3 mmol/L (3.5-5.1)
--- NOTE | 2019-05-21 08:03 | EKG ---
[address] [address] ELECTROCARDIOGRAM REPORT Name: JULIANLISSETTE P Room #: [facility]#: [id number] ������������������ Admission: 05/21/19 ������������������ Attend Phys: Gilberto Oliva MD, Discharge: ������������������ Date of : 48 Report #: [id number] ����������������������������������������������������������������� [id number] THIS REPORT FOR: //name// [facility] Test Date: 2019-05-21 Test Time: 07:17:10 Pat Name: LISSETTE JULIAN Department: Room: Gender: F Correspondence Analyst: Ryann LORENZO : 1950 Requested By: Gilberto Oliva Order Number: [id number] MD: Cristopher Branch Measurements Intervals [place] Rate: 66 P: 39 CO: 168 QRS: 4 QRSD: 94 T: 46 QT: 428 QTc: 449 Interpretive Statements Sinus rhythm Compared to ECG 10/23/2016 01:44:03 No significant changes Electronically Signed On 05-21-2019 8:02:42 CDT by Cristopher Branch [email or web address] ��������������������������������������������� <ELECTRONICALLY SIGNED> ���������������������������������������� By: Cristopher Branch MD ��������������������������������������������� 05/21/19801 6 6 Cristopher Branch MD /SARY
--- NOTE | 2019-05-21 12:38 | CATHLAB ---
[facility] [place] [address] INVASIVE PROCEDURE REPORT Name: JULIANLISSETTE Room #: REG [facility]#: [id number] ������������� Admission: 05/21/19 ������������� Attend Phys: Gilberto Oliva, Discharge: ��� ������������� ��� Date of : 48 Date of Service: 05/21/19 1238 �� Report #: [id number] �������� ��������������������������������������������[id number] THIS REPORT FOR: //name// APPROVED REPORT Study performed: 05/21/2019 07:22:17 Patient Details Patient Status: In-Patient Room #: The patient is a 68 year-old female Event Personnel Gilberto Oliva Instruction Dean, Sherman Malik RN, Chery Llamas RTR, MINA Loja, Priya Osman Monitor Procedures Performed Left Heart Cath w/LT VGram [id number] LHCLV KRUPA Place w/wo Plasty Single RCA [id number] Procedure Narrative The Right Groin^ was infiltrated with 1% Lidocaine subcutaneous anesthesia. A PINNACLE 6FR Sheath #[id number] sheath was inserted into the RFA 6F^. Coronary angiography was performed using coronary diagnostic catheters. The right coronary system was accessed and visualized with a JR4 catheter. The left coronary system was accessed and visualized with a JL4 catheter. The left ventricle was accessed and visualized with a PIGTAIL catheter. Intraoperative Conscious Sedation Sedation start time: 807 Case end Time: 850 Fentanyl 50 mcg Versed 2 mg Fluoro Time: 5.17 minutes Dose: DAP 3839.90 cGycm2 436 mGy Contrast Type and Amount: Omnipaque 230 ml Coronary Angiography The patient's coronary anatomy is right dominant. Diagnostic Cath Left Main Normal left main LAD Mild 10-20% proximal LAD plaquing Circumflex Mild proximal 20% circumflex plaquing OM1 Large bifurcating, single marginal branch [facility] [address] [place] [address] INVASIVE PROCEDURE REPORT Name: LISSETTE JULIAN Room #: [facility]#: [id number] ������������� Admission: 05/21/19 ������������� Attend Phys: Gilberto Oliva, Discharge: ��� ������������� ��� Date of : 48 Date of Service: 05/21/19 1238 �� Report #: [id number] �������� ��������������������������������������������[id number] Right Coronary Calcific ostial disease, nonocclusive. 80% proximal right coronary stenosis followed by a small aneurysmal segment. R PDA Normal posterior descending RPLV Normal posterolateral branch Ramus Large ramus branch, angiographically normal Left Ventriculography The left ventricle is normal in size with normal contractility. The left ventricular ejection fraction is estimated to be 60-65%. Left ventricular wall motion abnormalities are not present. There is no mitral insufficiency. Hemodynamics The aortic pressure is 182/98 mmHg with a mean of mmHg. The left ventricular pressure is 183/7 mmHg with a mean of mmHg. The left ventricular end diastolic pressure is 24 mmHg. PCI Technique Lesion Anticoagulation was achieved with Heparin, Integrilin. Patient was preloaded with Effient. Percutaneous coronary intervention was performed on the proximal to mid right coronary artery. The lesion stenosis prior to intervention was 85% with MUKESH 3 flow. A LAUNCHER 6FR JR 4 #[id number] Guide Catheter was used to engage the right coronary ostium. A Runthrough Wire .014 X 180 #[id number] Interventional Guidewire was used to cross the lesion. BALLOON DILATION A Balloon catheter TREK RX 2.5 X 15 #[id number] was inserted and inflated up to 14.00atm for 35seconds. Repeat angiography revealed the following post-dilatation results: moderate residual stenosis. STENT DEPLOYMENT A drug-eluting stent XIENCE PALMA RX 3.0 X 23 #[id number] was inserted and inflated up to 14.00atm for 35seconds. Repeat angiography revealed the following post-stent deployment results: 0% residual stenosis. POST STENT DEPLOYMENT BALLOON DILATION A Balloon catheter TREK NC RX 3.0 X 15 #[id number] was inserted and inflated up to 16.00atm for 27seconds. Additional Inflation: 22.00atm for 38seconds. Final angiography reveals 0 % stenosis with MUKESH [address] [address] INVASIVE PROCEDURE REPORT Name: JULIANLISSETTE P Room #: REG [facility]#: [id number] ������������� Admission: 05/21/19 ������������� Attend Phys: Gilberto Oliva, Discharge: ��� ������������� ��� Date of : 48 Date of Service: 05/21/19 1238 �� Report #: [id number] �������� ��������������������������������������������[id number] Conclusion 1. Normal global and regional left ventricular systolic function. Ejection fraction 60-65%. 2. Normal left main 3. Mild LAD and circumflex plaquing. 4. Severe proximal right coronary stenosis successfully stented with a 3.0 x 23mm Xience medicated stent ��������������������������������������������� <ELECTRONICALLY SIGNED> ���������������������������������������� By: Gilberto Oliva MD, [facility] ��������������������������������������������� 05/21/19 1238 1238 1238 Gilberto lOiva MD, [facility] /INF
[2019-05-21 13:08] LABS: ABSOLUTE NEUTROPHILS 3.4 thou/uL (1.4-8.2); BASOPHILS 1.2 % (0.0-2.0); EOSINOPHILS 2.4 % (0.0-3.0); HEMATOCRIT 43.3 % (37.0-47.0); HEMOGLOBIN 14.7 gm/dL (12.0-15.0); LYMPHOCYTES 30.8 % (24.0-44.0); MCH 31.7 pg (26.0-34.0); MCHC 33.9 g/dL (28.0-37.0); MCV 93.7 fL (80.0-100.0); MONOCYTES 5.2 % (1.0-8.0); PLATELET COUNT 123 thou/uL (150-400); POLYS 60.4 % (36.0-66.0); RBC 4.62 mil/uL (4.20-5.00); WBC 5.6 thou/uL (4.0-11.0)
[2019-05-21 13:21] LABS: APTT 30.6 Seconds (24.5-32.8); PROTIME 10.7 Seconds (9.3-11.4)
--- NOTE | 2019-05-21 17:59 | NUR ---
PATIENT ARRIVED FROM CERTIFIED HISTOLOGIC TECHNICIAN, ALERT AND ORIENTED X4. RT GRION SITE D/C/I, AND VSS. AND WILL CONTINUE WITH POC.
[2019-05-22 00:03] VITALS: BP 124/57
[2019-05-22 01:03] VITALS: BP 149/69
[2019-05-22 02:23] LABS: URINE BILIRUBIN NEGATIVE (Negative); URINE BLOOD NEGATIVE (Negative); URINE CLARITY CLEAR; URINE COLOR YELLOW; URINE GLUCOSE-RANDOM* NEGATIVE (Negative); URINE KETONES NEGATIVE (Negative); URINE LEUKOCYTES-REFLEX TRACE (Negative); URINE NITRITE-REFLEX NEGATIVE (Negative); URINE PROTEIN (DIPSTICK) NEGATIVE (Negative); URINE SPECIFIC GRAVITY <= 1.005 (1.005-1.035); URINE UROBILINOGEN 0.2 E.U./dl (0.2-1.0)
--- NOTE | 2019-05-22 03:20 | NUR ---
ASSESSMENT DOCUMENTED,PT BEEN RESTING IN NO ACUTE DISTRESS.A/OX4.VSS.S/P CARDIAC RIVAS WITH STENT PLACED.RIGHT GROIN DRESSING CDI,NO HEMATOMA.PT BEEN UP INDEPENDTLY TO BR,GAIT STEADY.DENIES ANY NEEDS AT THIS TIME.WILL CONTINUES TO MONITOR PER POC.
[2019-05-22 04:00] VITALS: BP 127/60
[2019-05-22 05:54] LABS: HEMATOCRIT 40.1 % (37.0-47.0); HEMOGLOBIN 13.7 gm/dL (12.0-15.0); MCH 32.2 pg (26.0-34.0); MCHC 34.3 g/dL (28.0-37.0); RBC 4.26 mil/uL (4.20-5.00); RDW 12.9 % (10.5-14.5); WBC 5.6 thou/uL (4.0-11.0)
[2019-05-22 06:22] LABS: ANION GAP 10 mmol/L (7-16); BUN 18 mg/dL (7-18); CHLORIDE 109 mmol/L (98-107); CHOLESTEROL 130 mg/dL (<200); CO2 26 mmol/L (21-32); CREATININE 0.7 mg/dL (0.6-1.0); GLUCOSE 85 mg/dL (74-106); HDL CHOLESTEROL 49 mg/dL (>40); LDL CHOLESTEROL 64 mg/dL (<100); POTASSIUM 3.2 mmol/L (3.5-5.1); SGOT 16 U/L (15-37); SGPT 15 U/L (30-65); SODIUM 145 mmol/L (136-145); TC:HDL 2.7 Ratio (Not establshd); TOTAL BILIRUBIN 0.9 mg/dL (<0.1-1.0); TOTAL PROTEIN 6.1 g/dL (6.4-8.2); TRIGLYCERIDE 87 mg/dL (<150); TROPONIN-I 0.12 ng/mL (<0.06); VLDL 17 mg/dL (<40)
[2019-05-22 07:30] VITALS: BP 140/71
--- NOTE | 2019-05-22 08:33 | NUR ---
ASSUMED CARE OF PT APPROX 0715, SPOUSE AT BEDSIDE GETTING READY TO LEAVE. KNOWS D/C CAN TAKE JUST A LITTLE BIT. AMB STEADY, A&0X4, GROIN SITE LOOKS EXCELLENT, NO BRUISING NOR DRAINAGE. OVERHEARD PHYSICIAN SAYING NO ADMIT REC MEDS DONE. LET HIM KNOW WITHIN THE NEXT HOUR WED GO OVER IT AND THEN TEXT ROSANNE. WILL CONTINUE TO MONITOR
--- NOTE | 2019-05-22 08:59 | D ---
[facility] [place] [address] DISCHARGE SUMMARY Name: LISSETTE JULIAN Room #: 208-P [facility]#: [id number] Admission: 05/21/19 ������������������ Attend Phys: Gilberto Oliva MD, Discharge: ������������������ Date of : 48 Report #: [id number] THIS REPORT FOR: //name// CC: Gilberto Park DATE OF SERVICE: 05/21/2019 DISCHARGE DIAGNOSES: 1. Coronary artery disease. 2. Severe proximal right coronary artery disease, treated with a 3.0 x 23 mm Xience stent; normal ejection fraction. 3. Severe carotid stenosis. 4. Hypertension. 5. Dyslipidemia. 6. Tobacco dependency. 7. Rheumatoid arthritis. 8. History of osteomyelitis of the left foot. 9. 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 Briefly the patient is a 68-year-old with a history of hypertension, dyslipidemia, rheumatoid arthritis and peripheral vascular disease, who presents with exertional breathlessness. Symptoms are suspicious for progressive angina. She is admitted for coronary angiography. HOSPITAL COURSE: The patient was admitted and underwent coronary angiography. The full details of this can be found under separate heading and dictation. In summary, left ventricular systolic function was found to be normal. She had mild plaquing in the LAD and circumflex. There was severe disease in the proximal portion of her dominant right coronary, which was successfully stented with a 3.0 x 23 mm Xience medicated stent. She received heparin and Integrilin in the john-procedural setting. She tolerated dual antiplatelet therapy with aspirin and Effient. Outpatient evaluation was notable for severe carotid stenosis. She underwent a cerebral angiography demonstrating the left internal carotid artery with an 80% stenosis. There was chronic occlusion of the right internal carotid artery. There was a small 2.7 mm left cerebral artery trifurcation aneurysm and absence of a right kidney identified. Arrangements were made for her to see Dr. Navas in anticipation of a probable TCAR. She is a high risk surgical candidate in light of her coronary artery disease and a contralateral carotid occlusion. Home medicines were reconciled and included the following: Amlodipine 10 mg daily, atorvastatin 80 mg daily, metoprolol 50 mg daily, prednisone 2.[address] [address] DISCHARGE SUMMARY Name: LISSETTE JULIAN Barbara Room #: 208-P [facility] [place]#: [id number] Admission: 05/21/19 ������������������ Attend Phys: Gilberto Oliva MD, Discharge: ������������������ Date of : 48 Report #: [id number] daily, valsartan/hydrochlorothiazide 320/12.5 one tablet daily, aspirin and Effient 10 mg daily, KCl 10mEq daily. Arrangements were made for outpatient cardiac rehabilitation. Follow up with myself in 4-6 weeks, follow up with regards to carotid stenosis. Smoking cessation counseling was performed. DISCHARGE ACTIVITY: As tolerated post-angiography. DISCHARGE CONDITION: Stable and improved. ��������������������������������������������� <ELECTRONICALLY SIGNED> ���������������������������������������� By: Gilberto Oliva MD, FACC ��������������������������������������������� 05/22/19 0859 1715 2101 Gilberto Oliva MD, FACC /nt
[2019-05-22] MEDS ORDERED: LOPRESSOR50 PO (09:45)
[2019-05-22] MEDS ORDERED: KLOR-CON 10 ER10 MEQ PO (10:58)
[2019-05-22] MEDS ORDERED: EFFIENT10 MG PO (10:58)
[2019-05-22] MEDS ORDERED: ASPIRIN325 PO (11:02)
[2019-05-22 11:31] VITALS: BP 122/60
--- NOTE | 2019-05-22 12:36 | EKG ---
[address] [address] ELECTROCARDIOGRAM REPORT Name: LISSETTE JULIAN Room #: 208-P [facility]#: [id number] ������������������ Admission: 05/21/19 ������������������ Attend Phys: Gilberto Oliva MD, Discharge: 05/22/19 ������������������ Date of : 48 Report #: [id number] ����������������������������������������������������������������� [id number] THIS REPORT FOR: //name// [facility] Test Date: 2019-05-21 Test Time: 11:54:25 Pat Name: LISSETTE JULIAN Department: Room: [facility] Gender: F Umbrella Tipper Machine: Ryann LORENZO : 1950 Requested By: Gilberto Oliva Order Number: [id number] MD: Gilberto Oliva Measurements Intervals [place] Rate: 54 P: 38 VT: 191 QRS: 7 QRSD: 97 T: 35 QT: 470 QTc: 446 Interpretive Statements Sinus rhythm Normal tracing Compared to ECG 05/21/2019 07:17:10 No significant changes Electronically Signed On 05-22-2019 12:36:28 CDT by Gilberto Oliva [email or web address] ��������������������������������������������� <ELECTRONICALLY SIGNED> ���������������������������������������� By: Gilberto Oliva MD, [facility] ��������������������������������������������� 05/22/19 1236 1154 1154 Gilberto Oliva MD, [facility] /EPI
--- NOTE | 2019-05-22 14:16 | EKG ---
[address] [address] ELECTROCARDIOGRAM REPORT Name: JULIAN,KAREN Barbara Room #: 208-[facility]#: [id number] ������������������ Admission: 05/21/19 ������������������ Attend Phys: Gilberto Oliva MD, Discharge: 05/22/19 ������������������ Date of : 48 Report #: [id number] ����������������������������������������������������������������� [id number] THIS REPORT FOR: //name// [facility] Test Date: 2019-05-22 Test Time: 07:25:19 Pat Name: LISSETTE JULIAN Department: Room: 208 Gender: F Loading Checker: [facility] : 1950 Requested By: Gilberto Oliva Order Number: [id number] MD: Cristopher Branch Measurements Intervals [place] Rate: 56 P: 42 TN: 167 QRS: 3 QRSD: 94 T: 47 QT: 444 QTc: 429 Interpretive Statements Sinus rhythm RSR' in V1 or V2, probably normal variant Compared to ECG 05/21/2019 07:17:10 RSR' in V1 or V2 now present Electronically Signed On 05-22-2019 14:16:12 CDT by Cristopher Branch [email or web address] ��������������������������������������������� <ELECTRONICALLY SIGNED> ���������������������������������������� By: Cristopher Branch MD ��������������������������������������������� 05/22/19 1416 0725 Cristopher Branch MD /EPI
== END 2019-05-22 12:23 | disposition home or self-care (01) ==
LOC: CATH 06:16 → 2N 14:29 → CATH 15:13 → 2N 05-22 12:23
PROVIDERS: Surgery Vascular Surgery; ADMIT Internal Medicine
DX: I25.10 Atherosclerotic heart disease of native coronary artery without angina pectoris (principal); I65.29 Occlusion and stenosis of unspecified carotid artery; I10 Essential (primary) hypertension; E78.5 Hyperlipidemia, unspecified; M06.9 Rheumatoid arthritis, unspecified; I67.1 Cerebral aneurysm, nonruptured; Z79.899 Other long term (current) drug therapy

== ENCOUNTER → 2019-05-29 | Outpatient (CLI) | payer OTHER, MEDICARE ==
[~2019-05-29] MED LIST changes: +ASPIR-TRIN325 MG PO; +ASPIRIN325 PO; +EFFIENT10 MG PO; +KLOR-CON 10 ER10 MEQ PO; +KLOR-CON 1010 MEQ PO; +LOPRESSOR50 PO; +VALSARTAN-HCTZ1 EAC4 PO
== END ==
LOC: HYPER 05-15 11:27
DX: T81.49XD Infection following a procedure, other surgical site, subsequent encounter (principal); L03.032 Cellulitis of left toe; M86.372 Chronic multifocal osteomyelitis, left ankle and foot; E78.5 Hyperlipidemia, unspecified; I10 Essential (primary) hypertension; M06.9 Rheumatoid arthritis, unspecified; F17.290 Nicotine dependence, other tobacco product, uncomplicated; Z89.411 Acquired absence of right great toe; Y83.8 Other surgical procedures as the cause of abnormal reaction of the patient, or of later complication, without mention of misadventure at the time of the procedure

== ENCOUNTER 2019-06-01 08:28 | Inpatient (IN) | payer OTHER, MEDICARE ==
[~2019-06-01] VITALS: Ht 154.9 cm; Wt 57.6 kg
[2019-06-01 09:57] VITALS: BP 164/64
--- NOTE | 2019-06-01 19:59 | NUR ---
[age] OLD FEMALE ADMITTED TO ICU ROOM 244. PT HAD TCAR DONE TODAY. LEFT NECK AND RIGHT GROIN SITE BOTH C/D/I. ART LINE IN PLACE. ELLE GTT INFUSING PER ORDER. BRANDON TO CAIN. PT TOLERATES MEDS AND DINNER. PT FAMILY AT BEDSIDE. PT SLOWLY PROGRESSING TOWRDAS POC GOALS.
[2019-06-01 20:00] VITALS: BP 139/51
[2019-06-02] VITALS (12 sets, daily range): BP systolic 91–148; BP diastolic 31–55
[2019-06-02 04:41] LABS: CREATININE 0.9 mg/dL (0.6-1.0)
--- NOTE | 2019-06-02 04:47 | NUR ---
ASSUMED PT CARE AT 1900. PT A/OX4, VITAL SIGNS STABLE, ASSESSMENT CHARTED. PT MAINTAINED ON A NEOSYN DRIP, ARTLINE IN PLACE. PT COMPLAINED OF NON-CARDIAC CHEST PAIN, PAIN MEDICATION GIEN WHICH SEEMED TO HELP. BP MAINTAINED WITHIN NORMAL LIMITS. RESTED WELL THROUGH THE NIGHT. OFF BEDREST AT ABOUT 2300. GROIUNG SITED AND LEFT NECK DRESSING CLEAN, DRY AND INTACT. PROGRESSING TOWARD PLAN OF CARE. WILL CONTINUE TO MONITOR.
[2019-06-02 04:48] LABS: HEMATOCRIT 38.9 % (37.0-47.0); HEMOGLOBIN 13.1 gm/dL (12.0-15.0); MCH 31.8 pg (26.0-34.0); MCHC 33.7 g/dL (28.0-37.0); MCV 94.4 fL (80.0-100.0); RBC 4.12 mil/uL (4.20-5.00); RDW 12.9 % (10.5-14.5); WBC 13.3 thou/uL (4.0-11.0)
--- NOTE | 2019-06-02 11:25 | NUR ---
ASSUMED CARE OF PT AT 0700 THIS SHIFT. PT HAS BEEN COOPERATIVE, HAS HAD CHRONIC PAIN THIS SHIFT. PT HAS BEEN VERY ANXIOUS THIS MORNING, BUT STATES SHE IS FEELING BETTER TODAY. PT WAS ABLE TO TAKE ALL MEDS THIS MORNING, CURRENTLY RESTING COMFORTABLY IN THE ROOM. PT HAS NOT HAD VISITORS YET THIS MORNING, EDUCATION WAS PROVIDED. PLAN OF CARE IS TO CONTINUE TO MONITOR PT CLOSELY.
--- NOTE | 2019-06-02 12:50 | NUR ---
ASSUMED CARE OF PT AT 0700 THIS SHIFT. PT HAS BEEN COOPERATIVE, HAS DENIED ANY PAIN THIS SHIFT SO FAR. PT HAS BEEN TITRATED DOWN AND OFF ELLE AT 1000 THIS SHIFT, BP HOLDING STABLE, HOWEVER PT HAS DEVELOPED BRADYCARDIA WITH DIZZINESS. CARDIOLOGY CONSULTED PER DR. DAVIDSON. PT HAS HAD SPOUSE IN ROOM THIS SHIFT, EDUCATION WAS PROVIDED. PLAN OF CARE IS TO CONTINUE TO MONITOR PT CLOSELY AT THIS TIME.
--- NOTE | 2019-06-02 16:29 | NUR ---
ASSUMED CARE AT 1300, SHIFT ASSESSMENT DONE, MEDS GIVEN, VSS. REPORTED PAIN, PRN PAIN MEDS GIVEN, SLEEPING THIS AFTERNOON. TAYLOR IN PLACE, DRAINED OUT 2850 ML. FECAL MANAGEMENT SYSTEM IN PLACE. PT DOES NOT WANT TO BE TURNED, REFUSING TURNS. WILL CONTINUE TO ASSESS AND ASSIST WITH ADLs NEEDED.
--- NOTE | 2019-06-02 16:58 | NUR ---
ASSUMED CARE AT 1300, SHIFT ASSESSMENT DONE, MEDS GIVEN, ART LINE IN PLACE. BP IS SOFT THIS AFTERNOON, SYSTOLIC HAS BEEN ABOVE 90 MOST OF THE TIME. WOKRED WITH PHYSICAL THERAPHY, SAT UP IN THE CHAIR, FEELING A BIT DIZZY. STILL BRADYCARDIC, HR IN THE LOW 50, HIGH 40S. DENIES PAIN, NAUSEA, VOMITING. TAYLOR WAS TAKEN OUT PER DR DAVIDSON. ART LINE IN PLACE AND FUNCTIONING. WILL CONTINUE TO ASSESSS AND ASSIST WITH ADLs NEEDED.
[2019-06-03] VITALS (8 sets, daily range): BP systolic 95–128; BP diastolic 44–53
--- NOTE | 2019-06-03 03:27 | NUR ---
ASSUMED CARE AT 1900.PATIENT A/O X 4.DENIES PAIN AND SOB.COMPLAIN OF LIGHTHEADEDNESS AND DIZZINESS.ON O2 2L NC.MONITOR SHOWS MAGNOLIA IN THE 35'S TO 50'S.VOIDED.ARTERIAL LINE CHECKED AND ZEROED.WILL MONITOR AND CONTINUE POC.
--- NOTE | 2019-06-03 07:56 | O ---
[facility] [place] [address] OPERATIVE REPORT Name: LISSETTE JULIAN Room #: 244-P ADM IN M.R.#: [id number] Admission: 06/01/19 Attend Phys: Orville Lynch MD Discharge: Date of : 48 Report #: [id number] THIS REPORT FOR: //name// CC: Darwin yLnch DATE OF SERVICE: 06/01/2019 PREOPERATIVE DIAGNOSIS: Left carotid artery stenosis. POSTOPERATIVE DIAGNOSIS: Left carotid artery stenosis. OPERATION: Transcarotid revascularization left with intraoperative arteriograms. SURGEONS: Orville Lynch MD and Carlin Copeland MD ANESTHESIA: General. INDICATIONS: The patient is a 68-year-old with high-grade left carotid artery stenosis. The patient has a contralateral occlusion but the vertebral arteries are open. The vertebral arteries do not seem to fill the anterior circulation, but of course, this relates to the situation as it existed at arteriography. FINDINGS AND TECHNIQUE: After general anesthesia was established, an incision was made above the clavicle to expose the left common carotid between the sternal and clavicular heads of the left sternocleidomastoid muscle. This artery was exposed and controlled and a pursestring was placed in it; 10,000 units of heparin were given. Separately, the right common femoral vein was identified and it was entered with the vascular needle and with exchange of wires and catheters, the transcarotid sheath was placed. The femoral component of the transcarotid sheath was placed. ACT was checked and was in the satisfactory range. In the neck, the common carotid was entered with the arterial needle and the guidewire was passed and over guidewire, the exchange catheter was placed and through it, the stiffer wire was placed. The good position with the exchange catheter was ascertained with angiography and then the carotid component of the transcarotid introducer was placed over the stiff guidewire. Access was gained to the internal carotid with the fine wire and then a 4.0 x 30 Cordis balloon was used to predilate the lesion. This appeared to inflate [facility] [address] [place] [address] OPERATIVE REPORT Name: LISSETTE JULIAN Room #: 244-P [facility] IN M.R.#: [id number] Admission: 06/01/19 Attend Phys: Orville Lynch MD Discharge: Date of : 48 Report #: [id number] satisfactorily and then an 8 x 40 Enroute stent was placed followed by dilatation with a 5.5 x 3.0 balloon. During the balloon dilatation and stent placement, the common carotid was occluded and blood was being shunted through the transcarotid [address] device from the carotid to the femoral vein. After waiting a satisfactory amount of time, a final arteriogram was taken that showed good dilatation of the internal carotid lesion. At this point, the occlusion was released and antegrade flow was reestablished. The shunt was dismantled and drained into the femoral artery and both the carotid arterial and femoral venous components were removed. Pressure was applied to the groin as we tied down the Prolene pursestring and an additional Prolene was placed in the common carotid. Protamine was given to reverse the heparin. When hemostasis was satisfactory, the wound was closed with interrupted platysma and continuous skin sutures. It should be mentioned that blood pressure was maintained and elevated during the antegrade occlusion portion of the procedure and it was allowed to normalize after that. Hemostasis was satisfactory. The patient was taken to the recovery area in good condition having tolerated the procedure well. All counts reported as correct. <ELECTRONICALLY SIGNED> By: Orville Lynch MD 06/03/19 0756 1146 1201 Orville Lynch MD /nt
--- NOTE | 2019-06-03 10:00 | NUR ---
Pt seen by doctors Syed and Jose Carlos. OK for discharge home to follow up with Dr. Lynch and Dr. Oliva as previously scheduled. Flu shot given to patient prior to dischage. Discharge instructions given to patient and spouse. Stent card provided.
--- NOTE | 2019-06-03 10:10 | NUR ---
Pt discharged home with via private vehicle.
--- NOTE | 2019-06-12 15:57 | HC ---
[facility] [place] [address] CONSULTATION Name: LISSETTE JULIAN Barbara Room #: 244-P [facility] IN M.R.#: [id number] Admission: 06/01/19 Attend Phys: Orville Lynch MD Discharge: 06/03/19 Date of : 48 Report #: [id number] THIS REPORT FOR: //name// CC: Darwin Lynch CARDIOLOGY CONSULTATION REASON FOR CONSULTATION: Bradycardia. HISTORY OF PRESENT ILLNESS: The patient is a 68-year-old female with history of coronary artery disease, who underwent carotid endarterectomy in this postop day #1. There has been some noted bradycardia on the cardiac cath lab manager. She feels a little lightheaded since she has been here, but she has not had any lightheadedness at home nor any syncope or presyncope. On telemetry, her heart rates were in the 30s. Now that I have talked to her and she is moving around, her heart rate gets all the way up into the 80s. She denies any chest heaviness or chest tightness. She recently had a stent placed to her RCA. She denies any PND, orthopnea, presyncope or syncope. REVIEW OF SYSTEMS: A 12-point review of systems was performed and was negative other than what I mentioned above. PAST MEDICAL HISTORY: Includes; 1. Coronary artery disease. 2. Hypertension. 3. Hyperlipidemia. 4. Rheumatoid arthritis. 5. Peripheral vascular disease. 6. Carotid artery disease. 7. Coronary artery disease, status post recent stenting. FAMILY HISTORY: Noncontributory. SOCIAL HISTORY: Continues to smoke. ALLERGIES: Reviewed. MEDICATIONS: Have been reviewed and has been on a beta nilton. PHYSICAL EXAMINATION: VITAL SIGNS: Temperature 37.0, pulse 40, respirations 19, blood pressure 113/45, sats 95%. GENERAL: No acute distress. HEENT: Oropharynx is clear. NECK: Supple, no thyromegaly. HEART: Regular rate and rhythm. [facility] [address] [address] CONSULTATION Name: LISSETTE JULIAN Room #: 244-P [facility] IN ..#: [id number] Admission: 06/01/19 Attend Phys: Orville Lynch MD Discharge: 06/03/19 Date of : 48 Report #: [id number] LUNGS: Clear to auscultation bilaterally. ABDOMEN: Soft, nontender, nondistended. EXTREMITIES: No clubbing, cyanosis or edema. LABORATORY DATA: Labs have been reviewed. A 12-lead EKG here showed that she is in sinus rhythm. Prior EKGs in clinic shows sinus rhythm in the 70s. ASSESSMENT: Sinus bradycardia. PLAN: Etiology of this is unclear, could be related to her surgery and high vagal tone as she has not had issues with this in the past. We will hold AV terrell blocking agents. She does not necessarily need to stay in the ICU for this heart rate. We can monitor this as an outpatient, perhaps she will wear a heart monitor when she goes home. If the bradycardia remains an issue, we could discuss pacemaker electively as an outpatient. <ELECTRONICALLY SIGNED> By: Cristopher Branch MD 06/12/19 1557 1202 1621 Cristopher Branch MD /nt
== END 2019-06-03 10:10 | disposition home or self-care (01) | DRG 36 ==
LOC: TBA 08:28 → PRE 15:38 → ICU 15:57
PROVIDERS: Physician Assistant; ADMIT Surgery Vascular Surgery
PROC: 037L3DZ Dilation of Left Internal Carotid Artery with Intraluminal Device, Percutaneous Approach (ICD-10-PCS; principal; 2019-06-01)
DX: I65.22 Occlusion and stenosis of left carotid artery (principal); R00.1 Bradycardia, unspecified; I25.10 Atherosclerotic heart disease of native coronary artery without angina pectoris; I10 Essential (primary) hypertension; E78.5 Hyperlipidemia, unspecified; M06.9 Rheumatoid arthritis, unspecified; F17.200 Nicotine dependence, unspecified, uncomplicated; I73.9 Peripheral vascular disease, unspecified; Z95.5 Presence of coronary angioplasty implant and graft; Z71.6 Tobacco abuse counseling; Z23 Encounter for immunization
CPT/HCPCS: 10078; 47375; 48888; 50010; 50101; 50386; 50417; 50455; 51301; 51751; 54118; 56524; 56526; 56528; 62110; 62900; 70005

== ENCOUNTER → 2019-09-12 | Outpatient (CLI) | payer OTHER, MEDICARE | LOC: SJCVC 15:17 | DX: I25.10 Atherosclerotic heart disease of native coronary artery without angina pectoris (principal); I10 Essential (primary) hypertension; I65.23 Occlusion and stenosis of bilateral carotid arteries; I73.9 Peripheral vascular disease, unspecified; M06.9 Rheumatoid arthritis, unspecified; I60.7 Nontraumatic subarachnoid hemorrhage from unspecified intracranial artery; E78.5 Hyperlipidemia, unspecified; Z90.710 Acquired absence of both cervix and uterus; Z72.0 Tobacco use; Z88.8 Allergy status to other drugs, medicaments and biological substances ==

== ENCOUNTER → 2020-03-06 | Outpatient (CLI) | payer OTHER, MEDICARE | LOC: SJCVCIMAG 10:59 | PROVIDERS: ATTEND Internal Medicine | DX: I25.10 Atherosclerotic heart disease of native coronary artery without angina pectoris (principal); I10 Essential (primary) hypertension; I65.23 Occlusion and stenosis of bilateral carotid arteries; I73.9 Peripheral vascular disease, unspecified; M06.9 Rheumatoid arthritis, unspecified; I60.7 Nontraumatic subarachnoid hemorrhage from unspecified intracranial artery ==

== ENCOUNTER → 2021-03-05 | Outpatient (CLI) | payer OTHER | LOC: SJCVC 11:01 | PROVIDERS: ATTEND Internal Medicine | DX: I25.10 Atherosclerotic heart disease of native coronary artery without angina pectoris (principal); I10 Essential (primary) hypertension; I65.23 Occlusion and stenosis of bilateral carotid arteries; E78.5 Hyperlipidemia, unspecified; I73.9 Peripheral vascular disease, unspecified; M06.9 Rheumatoid arthritis, unspecified; I60.7 Nontraumatic subarachnoid hemorrhage from unspecified intracranial artery; M19.90 Unspecified osteoarthritis, unspecified site; I35.0 Nonrheumatic aortic (valve) stenosis; F17.210 Nicotine dependence, cigarettes, uncomplicated; Z79.82 Long term (current) use of aspirin; Z79.899 Other long term (current) drug therapy; Z88.1 Allergy status to other antibiotic agents ==

== ENCOUNTER → 2021-04-02 | Outpatient (CLI) | payer OTHER | LOC: SJCVCIMAG 07:08 | PROVIDERS: ATTEND Internal Medicine | DX: I65.21 Occlusion and stenosis of right carotid artery (principal); R00.1 Bradycardia, unspecified; E78.5 Hyperlipidemia, unspecified; I25.10 Atherosclerotic heart disease of native coronary artery without angina pectoris; M06.9 Rheumatoid arthritis, unspecified; F17.200 Nicotine dependence, unspecified, uncomplicated; Z95.5 Presence of coronary angioplasty implant and graft; Z98.890 Other specified postprocedural states; Z95.828 Presence of other vascular implants and grafts; Z90.710 Acquired absence of both cervix and uterus; Z79.899 Other long term (current) drug therapy ==